=== PATIENT | female | born 1945 | race Caucasian/White ===

== ENCOUNTER → 2017-04-09 09:45 | Outpatient (CLI) | payer OTHER, SELFPAY ==
--- NOTE | 2017-04-09 09:51 | RAD_ITS ---
STUDY: X-RAY - LEFT FOOT CLINICAL: Female, 71 years old. Cellulitis overlying the first toe following injury. TECHNIQUE: 3 view(s) of the foot. COMPARISON: None. FINDINGS: There is a plantar calcaneal spur. Normal visualized subtalar, talonavicular, calcaneocuboid, tarsal and tarsometatarsal articulations. Findings suggestive of an old avulsion fracture along the dorsal posterior aspect of the tarsonavicular bone. Normal metatarsi. There is degenerative arthrosis of the metatarsophalangeal joint of the hallux . Normal tibial and fibular sesamoid bones. Normal interphalangeal joint of the great toe. Normal phalanges of the great toe. Normal second through fifth metatarsophalangeal joints. Normal interphalangeal joints and phalanges of the lesser toes. The soft tissue structures are unremarkable. RAD/Foot min 3 Views IMPRESSION: Soft tissue swelling. No acute abnormality is seen. Electronically Signed: Emory Michelle MD at 14:13 EST Tel [phone], Service support ,
[2017-04-09 12:21] LABS: Absolute Lymphocyte Count 1.79 X10^3/ul (0.83-4.51); Absolute Neutrophil Count 2.3 X10^3/uL (2.0-7.7); Basophil# 0.11 X10^3/uL; Basophil% 2.3 % (0-1); Eosinophil# 0.13 X10^3/uL; Eosinophils% 2.7 % (0-5); Hematocrit 42.4 % (37-47); Hemoglobin 14.5 g/dl (12.0-15.0); Lymphocyte # 1.79 X10^3/ul (4.0); Mean Corp Hgb Conc 34.2 g/gl (32-36); Mean Corpuscular Volume 90.6 fL (81-99); Mean Platelet Vol. 10.8 fl (6.2-12.0); Monocyte# 0.53 X10^3/uL; Neutrophil # 2.26 X10^3/uL (2.7-7.7); Neutrophil % 46.6 % (47-70); Platelet Count 280 K/mm3 (150-450); RBC Distribution Width CV 12.6 % (11.6-14.6); RBC Distribution Width SD 41.4 fl (35.1-43.9); Red Blood Count 4.68 M/mm3 (4.2-5.4); White Blood Count 4.8 K/mm3 (4.4-11.0)
[2017-04-09 12:54] LABS: POSITIVE COUNT NO; POSITIVE DIFFERENTIAL NO; POSITIVE MORPHOLOGY NO
== END ==
PROVIDERS: Family Provider Internal Medicine; PCP Internal Medicine; Visit Provider Nurse Practitioner Family
DX: L03.032 Cellulitis of left toe (principal); S91.112A Laceration without foreign body of left great toe without damage to nail, initial encounter
CPT/HCPCS: 36415; 73630; 85025; 87070; 87075; 87077; 87186; 87205

== ENCOUNTER → 2017-10-12 08:22 | Outpatient (CLI) | payer OTHER, SELFPAY ==
[2017-10-12 10:29] LABS: BUN 17 mg/dL (7-18); BUN/Creat Ratio 18.3 RATIO (10-20); Calcium,Total 9.3 mg/dL (8.5-10.1); Chloride 107 mmol/L (98-107); Creatinine, Serum 0.93 mg/dL (0.55-1.02); EST Glomerular Filtration Rate 63 mL/min (>60); Est Glom Filt Rate - Afr Amer 77 mL/min (>60); Glucose 89 mg/dL (74-106); Potassium 4.1 mmol/L (3.5-5.1); Sodium Level 140 mmol/L (136-145)
[2017-10-12 10:30] LABS: Anion Gap 8 (5-15)
== END ==
PROVIDERS: Family Provider Internal Medicine; PCP Internal Medicine; Visit Provider Internal Medicine
DX: I10 Essential (primary) hypertension (principal)
CPT/HCPCS: 36415; 80048

== ENCOUNTER → 2017-11-12 08:38 | Outpatient (CLI) | payer OTHER, SELFPAY ==
[2017-11-12 11:14] LABS: Vitamin D,25 Hydroxy 28.1 ng/mL (29.95-100.01)
[2017-11-12 11:17] LABS: ALB/GLOB Ratio 1.2 RATIO (0.9-2.4); AST(SGOT) 25 U/L (15-37); Alanine Aminotransfer ALT/SGPT 41 U/L (13-56); Albumin, Serum 3.8 g/dL (3.2-5.0); Alkaline Phosphatase 77 U/L (45-117); Anion Gap 7 (5-15); BUN 13 mg/dL (7-18); BUN/Creat Ratio 14.5 RATIO (10-20); Calcium,Total 8.8 mg/dL (8.5-10.1); Chloride 105 mmol/L (98-107); Cholesterol 223 mg/dL (200); Creatinine, Serum 0.89 mg/dL (0.55-1.02); EST Glomerular Filtration Rate 66 mL/min (>60); Est Glom Filt Rate - Afr Amer 80 mL/min (>60); Globulin 3.2 g/dL (2.2-4.2); Glucose 91 mg/dL (74-106); High Density Lipoprotein 51 mg/dL; Potassium 4.2 mmol/L (3.5-5.1); Sodium Level 141 mmol/L (136-145); Triglycerides 236 mg/dL; Very Low Density Lipoprotein 47 mg/dL (5-40)
== END ==
PROVIDERS: Family Provider Internal Medicine; PCP Internal Medicine; Referring Provider Internal Medicine; Visit Provider Internal Medicine
DX: E78.5 Hyperlipidemia, unspecified (principal); M85.80 Other specified disorders of bone density and structure, unspecified site; R79.89 Other specified abnormal findings of blood chemistry
CPT/HCPCS: 36415; 80053; 80061; 82306

== ENCOUNTER → 2018-01-08 08:11 | Outpatient (CLI) | payer OTHER, SELFPAY ==
--- NOTE | 2018-01-08 08:14 | BI_ITS ---
MAMMOGRAPHY - BILATERAL SCREENING REASON FOR EXAM: Female, 72 years old. Routine annual screening examination. PERTINENT HISTORY: Grandmother with breast cancer. TECHNIQUE: Digital bilateral breast jaya (3D mammographic acquisition) in the CC and MLO projections. 2-D mediolateral oblique (MLO) and craniocaudad (CC) views of both breasts were obtained. CAD: Full Field Digital Mammography with Computer Added Detection was performed. COMPARISON: Comparison is made with prior study dated December 24, 2016 and December 24, 2015. FINDINGS: Breast Composition: There are scattered areas of fibroglandular density. There are no dominant masses or suspicious calcifications. No other significant abnormalities are identified. There has been no significant change since the prior study. BI/SCREENING MAMM (CAD), BILAT IMPRESSION: Stable bilateral screening mammogram. Yearly follow-up mammogram recommended. (A) ASSESSMENT CATEGORY: BIRADS Category 1: Negative. A letter regarding these results will be sent to the patient by the facility within 30 days. Approximately 10% of breast cancers are not detected by mammography. A normal mammogram should not delay biopsy of a clinically suspicious abnormality. [id number] Electronically Signed: Emory Michelle MD at 9:25 EST Tel [phone], Service support ,
--- OUTSIDE RECORDS SUMMARY | 2018-03-04 19:01 | XMS RPT_ITS ---
:1945 Author Organization OHIP Support Name Relationship Address Phone GINA OLMOS Unavailable [address] + [place] [address] GERPO Unavailable [address] [place] [address] + [place] [address] AMARILIS, GINA Unavailable Unavailable + GERPO Unavailable [address] [place] [address] + [place] [address] AMARILIS, GINA Unavailable [address] + [place] [address] GERPO Unavailable [address] [place] [address] + [place] [address] AMARILIS, GINA Unavailable [address] + [place] [address] GERPO Unavailable [address] [place] [address] + [place] [address] AMARILIS, GINA Unavailable [address] + [place] [address] GERPO Unavailable [address] [place] [address] + [place] [address] AMARILIS, GINA Unavailable [address] + [place] [address] GERPO Unavailable [address] [place] [address] + [place] [address] AMARILIS, GINA Unavailable [address] + [place] [address] GERPO Unavailable [address] [place] [address] + [place] [address] AMARILIS, GINA Unavailable [address] + [place] [address] GERPO Unavailable [address] [place] [address] + [place] [address] AMARILISCHEL FRYE Unavailable [address] [phone] [place] [address] GERPO Unavailable [address] [place] [address] + [place] [address] AMARILIS, GINA Unavailable [address] [phone] [place] [address] GERPO Unavailable [address] [place] [address] + [place] [address] AMARILIS, GINA Unavailable [address] [phone] [place] [address] GERPO Unavailable [address] [place] [address] + [place] [address] AMARILIS, GINA Unavailable [address] [phone] [place] [address] GERPO Unavailable [address] [place] [address] + [place] [address] AMARILISCHELE Unavailable [address] [phone] [place] [address] GERPO Unavailable [address] [place] [address] + [place] [address] Care Team Providers Name Role Phone DR. TUYET LOZA DO Attending Unavailable LILLIANA CANDELARIO MD Primary Care Unavailable Sherly Noble Attending Unavailable Oleghe, Efewongbe Referring Unavailable RecioDangelo CUTTER MACHINE-C Attending Unavailable Oleghe, Efewongbe Referring Unavailable Oleghe, Efewongbe Primary Care Unavailable Dangelo Recio CUTTER MACHINE-C Attending Unavailable Oleghe, Efewongbe Primary Care Unavailable Dangelo Recio CUTTER MACHINE-C Referring Unavailable Dangelo Recio CUTTER MACHINE-C Attending Unavailable Oleghe, Efewongbe Referring Unavailable Oleghe, Efewongbe Primary Care Unavailable Oleghe, Efewongbe Attending Unavailable Oleghe, Efewongbe Referring Unavailable Oleghe, Efewongbe Attending Unavailable Oleghe, Efewongbe Referring Unavailable Oleghe, Efewongbe Primary Care Unavailable Oleghe, Efewongbe Attending Unavailable Oleghe, Efewongbe Referring Unavailable Oleghe, Efewongbe Attending Unavailable Oleghe, Efewongbe Referring Unavailable Oleghe, Efewongbe Primary Care Unavailable Oleghe, Efewongbe Attending Unavailable Oleghe, Efewongbe Referring Unavailable Oleghe, Efewongbe Primary Care Unavailable Oleghe, Efewongbe Attending Unavailable Oleghe, Efewongbe Referring Unavailable Oleghe, Efewongbe Primary Care Unavailable Oleghe, Efewongbe Attending Unavailable Oleghe, Efewongbe Referring Unavailable Oleghe, Efewongbe Primary Care Unavailable Oleghe, Efewongbe Attending Unavailable Oleghe, Efewongbe Primary Care Unavailable Oleghe, Efewongbe Referring Unavailable Oleghe, Efewongbe Attending Unavailable Oleghe, Efewongbe Referring Unavailable Oleghe, Efewongbe Primary Care Unavailable PROBLEMS PROBLEMS DATE TYPE CONDITION / CODE ATTENDING STATUS SOURCE 01/25/2018 Unknown Z01.419 - Encounter Sherly Noble Active [facility] for gynecological Community examination Hospital (general) (routine) Repository without abnormal findings / Z01.419(ICD-10) 11/16/2017 Unknown Z12.31 - Encounter Oleghe, Active [facility] for screening [facility] mammogram for Hospital malignant neoplasm Repository of breast / Z12.31(ICD-10) 10/12/2017 Unknown I10 - Essential Oleghe, Active [place] (primary) [facility] hypertension / Hospital I10(ICD-10) Repository 04/09/2017 Unknown S91.112A - Recio, Dangelo Active [facility] Laceration without CUTTER MACHINE-C Community foreign body of Hospital left great toe Repository without damage to nail, initial encounter / S91.112A(ICD-10) 04/09/2017 Unknown L03.032 - Recio, Dangelo Active [facility] Cellulitis of left CUTTER MACHINE-C Community toe / Hospital L03.032(ICD-10) Repository 01/26/2017 Unknown E78.5 - Oleghe, Active [place] Hyperlipidemia, Efewongbe [facility] unspecified / Hospital E78.5(ICD-10) Repository PROCEDURES PROCEDURES No Procedure Records 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 [place] [address] OFFICE VISIT Date of Service: 01/25/18 MR#: [id number] Acct: [id number] Name: RACHELLE OLMOS Rep #: [id number] : 1945 Provider: HARPER Noble Age/Sex: 72/F Location: 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) Chief Complaint: est annual Section Chief Required: No Is patient in pain?: No Allergies amoxicillin Allergy (Intermediate, Verified 01/25/18 08:14) Rash clindamycin Allergy (Intermediate, Verified 01/25/18 08:14) Rash Medications cholecalciferol (vitamin D3) 2,000 unit capsule 2,000 unit PO QDAY 09/10/17 [History Confirmed 01/25/18] lisinopril 10 mg tablet 10 mg PO QDAY #60 tab 12/22/17 [Rx Confirmed 01/25/18] Is last menstrual period known: No Post menopausal: Yes Patient : No : No PFSH Medical History Low back pain (Chronic) Osteopenia (Chronic) IBS (irritable bowel syndrome) (Chronic) Hypertension (Chronic) Hyperlipidemia (Chronic) Surgical History History of 2 sections (Acute) Family History Grandmother Breast cancer Aunt Breast cancer Social History Smoking Status: Never smoker alcohol intake: never substance use type: does not use caffeine: Yes what type of physical activity do you participate in: walking frequency: 1-2 times per week seatbelt use: always do you feel safe at home: Yes additional social history: [employer] Patient works at [employer] Pregancy History 2 Elective abortions Hx Para 2 Spontaneous abortions Past Pregnancies Del. DatName GA/WeeksOutcome [facility]ocaProviderFOB e ht en ia tn Unknown 1971 Sha vanessa Unknown 1974 Lis a HPI Encounter for routine gynecological examination: Details: RACHELLE OLMOS is a 72 year old who presents for annual exam. Denies concerns History of abnormal PAP: no Last mammogram: recent History of abnormal mammogram: negative biopsy Colon cancer screenin Female Reproductive History Questions: Metorrhagia: No, Sexually active: Yes, Dyspareunia: No, PCB: No ROS Const Constitutional: Denies fatigue, weight gain or weight loss Cardio Card: Denies chest pain Resp Resp: Denies cough or shortness of breath with activity GI GI: Denies abdominal pain, constipation, change in stools, vomiting or bloating : Reports as per HPI; denies urinary frequency, pelvic pain, urinary urgency, vaginal discharge, vaginal itching, urinary incontinence or difficulty urinating Exam Const General: cooperative, healthy appearing, no acute distress, well developed Orientation: alert, oriented to person, oriented to place HENMT Head: normal to inspection Neck Neck: normal visual inspection Thyroid: thyroid normal Lymphatic: no lymphadenopathy noted Chest Breast inspection: normal inspection of the breasts, normal inspection of the axillae Breast palpation: normal palpation of the breasts, normal palpation of the axillae, no axillary lymphadenopathy Resp Effort AND Inspection: normal respiratory effort GI Palpation: soft, nontender, no masses Rectal Exam: deferred External Female Exam: normal external appearance, normal appearance of the urethra Urethra: normal appearance of the urethra, normal palpation Speculum Exam - Vagina: normal appearance of the vagina, normal vaginal discharge Speculum Exam - Cervix: normal appearance of the cervix Bimanual Exam- Vagina AND Uterus: normal bimanual exam, uterine size normal, uterine shape normal, uterus non-tender Bimanual Exam- Adnexa, other: normal adnexae, no adnexal masses, adnexae non-tender, pelvic support normal Pelvic Support: normal Neuro General: alert, oriented x3 Psych Affect: normal affect Assessment AND Plan 1. Encounter for gynecological examination without abnormal finding Z01.419 Plan Completed breast and pelvic exam Reviewed diet and exercise Pap NA Mammogram recent Colonoscopy up to date Bone density osteopenia. 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 Plan Detail Other Medications Discontinued: aspirin (Enteric Coated Aspirin) Discontinued Reason: Pt no81 mg PO QDAY 90 tabs 6RF longer taking Coding Level of Care Code Off vis,est,prev 65+yrs Diagnoses Encounter for gynecological examination without abnormal finding Z01.419 Gynecological examination findings: abnormal findings ABSENT 01/25/18 0837 <Electronically signed by Sherly DOWNS> Date Sherly DOWNS Cosigner Signature: Date (if applicable) CC: SCREENING MAMM (CAD), Observed: 01/08/2018 Status: F Source: CECI JOELWINSTON 8:14 AM [facility] REPOSITORY [facility] Imaging Services [address] [place] [id number] SCREENING MAMM (CAD), [facility] MR#: [id number] Acct: [id number] Name: RACHELLE OLMOS Rep #: [id number] : 1945 F 72 From: Emory Michelle MD PCP: Lilliana Candelario MD Status: REG CLI Study: SCREENING MAMM (CAD), JOEL Date of Exam: 01/08/18 Exam# [id number] Ordering Dr: Lilliana Candelario MD MAMMOGRAPHY - BILATERAL SCREENING REASON FOR EXAM: Female, 72 years old. Routine annual screening examination. PERTINENT HISTORY: Grandmother with breast cancer. TECHNIQUE: Digital bilateral breast jaya (3D mammographic acquisition) in the CC and MLO projections. 2-D mediolateral oblique (MLO) and craniocaudad (CC) views of both breasts were obtained. CAD: Full Field Digital Mammography with Computer Added Detection was performed. COMPARISON: Comparison is made with prior study dated December 24, 2016 and December 24, 2015. FINDINGS: Breast Composition: There are scattered areas of fibroglandular density. There are no dominant masses or suspicious calcifications. No other significant abnormalities are identified. There has been no significant change since the prior study. BI/SCREENING MAMM (CAD), BILAT IMPRESSION: Stable bilateral screening mammogram. Yearly follow-up mammogram recommended. (A) ASSESSMENT CATEGORY: BIRADS Category 1: Negative. A letter regarding these results will be sent to the patient by the facility within 30 days. Approximately 10% of breast cancers are not detected by mammography. A normal mammogram should not delay biopsy of a clinically suspicious abnormality. [id number] Electronically Signed: Emory Michelle MD at 9:25 EST Tel [phone], Service support , CC: Lilliana Candelario MD Product Picker: Signed INTERNAL MEDICINE Observed: 11/16/2017 Status: F Source: [place] OFFICE VISIT 2:31 PM [facility] [place] [address] [place] [address] OFFICE VISIT Date of Service: 11/16/17 MR#: [id number] Acct: [id number] Name: RACHELLE OLMOS Rep #: [id number] : 1945 Provider: Lilliana Candelario MD Age/Sex: 72/F Location: [facility] Status: Signed Intake Vital Signs11/16/17 Height 5 ft 1 in 11/16/17 Weight: 164 lb 11/16/17 Body Mass Index (BMI) 30.9 11/16/17 Blood Pressure 151/69 H 11/16/17 Blood Pressure Location Lt brachial Intake Visit Reasons: 3 M FU Chief Complaint: 3 mo FU - BP Is patient in pain?: No Allergies amoxicillin Allergy (Intermediate, Verified 11/16/17 08:03) Rash clindamycin Allergy (Intermediate, Verified 11/16/17 08:03) Rash Medications aspirin 81 mg tablet,delayed release 81 mg PO QDAY #90 tab 01/26/17 [Rx Confirmed 11/16/17] calcium carbonate 600 mg calcium (1,500 mg) tablet 600 mg PO BID tab 01/26/17 [History Confirmed 11/16/17] cholecalciferol (vitamin D3) 2,000 unit capsule 2,000 unit PO QDAY 09/10/17 [History Confirmed 11/16/17] lisinopril 10 mg tablet 10 mg PO QDAY #60 tab 09/10/17 [Rx Confirmed 11/16/17] PFSH Medical History Low back pain (Chronic) Osteopenia (Chronic) IBS (irritable bowel syndrome) (Chronic) Hypertension (Chronic) Hyperlipidemia (Chronic) Surgical History History of 2 sections (Acute) Family History Grandmother Breast cancer Aunt Breast cancer Social History Smoking Status: Never smoker alcohol intake: never substance use type: does not use what type of physical activity do you participate in: walking frequency: 1-2 times per week HPI HPI Chief Complaint: 3 mo FU - BP Details: RACHELLE OLMOS, is a 72yo F who presents to the office today for follow-up. She has no acute complaints at this time. Blood pressure in office is 151/60 9 mmHg however in review of a log as she had said previously, blood pressure at home is much better controlled. Possible whitecoat syndrome. Currently on 10 mg of lisinopril. Amlodipine was discontinued due to intolerable lower extremity edema. Last colonoscopy was about 3 years ago, next year in 7 years. Had previously received Zostavax, open to receiving the new shingles vaccine. Does not routinely receive a flu vaccine. Mammogram due in December. ROS Const Constitutional: No chills, fatigue, fever(s), frequent falls, malaise, weakness, sleep problems or change in appetite Eyes Eyes: No blurry vision, change in vision, double vision, discharge or visual disturbances ENT ENT: No abnormal hearing, ear pain, ear pressure, tinnitus or dizziness/vertigo Resp Respiratory: No cough, shortness of breath or wheezing Cardio Cardiology: No chest pain at rest, chest pain with exertion, shortness of breath, dyspnea on exertion, generalized swelling, irregular heart rhythm, lightheadedness, orthopnea, fast heart rate or palpitations Gastro GI: No abdominal pain, change in bowel habits, constipation, diarrhea, nausea/dyspepsia or vomiting Genitourinary-Female: No difficulty urinating, burning urination, painful urination, urinary incontinence, urinary frequency, urinary urgency, urinary hesitancy, urinary retention, Frequent nighttime urination/ nocturia, sexual problems, genital lesions, abnormal vaginal bleeding, pelvic pain, vaginal dryness, vaginal odor or Vaginal Itching Musc Musculoskeletal: No joint pain, back pain, joint swelling, limited range of motion, numbness or tingling Skin Skin: No change in skin color, itching, rash or wounds Breast Breast: No breast lump or breast pain Neuro Neurology: No frequent falls, weakness, abnormal hearing, numbness, tingling, unsteady gait/balance, dizziness, loss of vision, memory loss or visual disturbances Psych Psychiatric: No memory loss, No anxiety, No change in appetite, No depression, No Thoughts of harming yourself/Others Endo Endocrine: No fatigue, heat intolerance, increased thirst/drinking, increased hunger or increased urination Aller/Imm Allergy/Immunologic: No wheezing, itchy eyes or seasonal allergy symptoms Burke/Lymp Hematologic/Lymphatic: No easy bleeding, easy bruising or enlarged lymph nodes Exam Const General: cooperative, no acute distress Orientation: alert, awake, oriented x3 HENVA Head: atraumatic, normocephalic Ears: hearing grossly normal bilaterally Resp Effort AND Inspection: normal respiratory effort, able to speak in complete sentences Auscultation: Bilateral: Clear to Auscultation Cardio Rate: regular rate Rhythm: regular rhythm Heart Sounds: S1 normal, S2 normal GI Palpation: soft, no hepatosplenomegaly Neuro General: alert, awake, oriented x3, moves all extremities, CN's II-XI intact bilaterally Extrem General: no clubbing, cyanosis or edema Psych Appearance: grossly normal Mood: congruent mood Affect: normal affect Assessment AND Plan 1. Essential hypertension I10 Plan Stable. Continue current medication. Continue lifestyle/dietary modifications. 2. Pure hypercholesterolemia E78.00 Plan Triglycerides slightly increased. Lifestyle/dietary modifications discussed including incorporating healthy fats into her diet, exercise and weight loss. Repeat in 1 year. 3. Osteopenia M85.80 Plan Stable. Last bone density scan was done about a year ago. Currently on vitamin D and calcium supplements. Muscle strengthening exercises also recommended. Continue current management. 4. Encounter for preventive care Z00.00 Plan Mammogram ordered. Due in December. Colonoscopy due in 7 years. Had received the Zostavax previously, advised to receive the new shingles vaccine. Does not routinely receive a flu shot, this was strongly recommended. Patient states that she will consider. This note was generated with MYFXation software. It may contain incorrect words, spelling, and punctuation that were not noted in checking the note before signing. Plan Detail Other Orders Orders: Coding Level of Care Code Off vis,est,level 3 Diagnoses Essential hypertension I10 Hypertension type: essential hypertension Pure hypercholesterolemia E78.00 Hyperlipidemia type: pure hypercholesterolemia Osteopenia M85.80 Encounter for preventive care Z00.00 11/16/17 1431 <Electronically signed by Lilliana Candelario MD> Date Lilliana Candelario MD Cosigner Signature: Date (if applicable) CC: VITAMIN D,25 HYDROXY Collected: 11/12/2017 Status: F Source: [facility] 8:48 AM [facility] REPOSITORY TYPE CODE TESTS RESULT OUT OF REFERENCE UNITS RANGE LAB L506.1000 29.95-100.01 ng/mL Low Vitamin D 28.1 25-OH Result Comment: Vitamin D 25(OH) Status Range Deficiency <20 ng/mL (50nmol/L) Insuffciency 20 - 30 ng/mL (50 - 75 nmol/L) Sufficiency 30 - 100 ng/mL (75 - 250 nmol/L) Toxicity >100 ng/mL (>250 nmol/L) Performed By: #### L506.1000 #### [facility] [address] [place], [address] COMPREHENSIVE METABOLIC Collected: 11/12/2017 Status: F Source: CECI SHEPHERD 8:48 AM [facility] REPOSITORY Order Comment: Comments: Fasting Comments: Fasting Comments: Fasting TYPE CODE TESTS RESULT OUT OF RANGE REFERENCE UNITS LAB L501.0100 74-106 mg/dL Normal GLU 91 Result Comment: Please note revised GLUCOSE reference range effective 2017. LAB L501.1000 7-18 mg/dL Normal BUN 13 LAB L501.1100 0.55-1.02 mg/dL Normal CREAT,SERUM 0.89 Result Comment: The validity of the calculated GFR AND GFRAA in patients over 70 years has not been determined. Clinical correlation is essential. LAB L501.1110 >60 mL/min Normal EST GFR 66 Result Comment: Non- GFR Calc LAB L501.1115 >60 mL/min Normal EST GFR - AA 80 Result Comment: GFR Calc LAB L501.1300 10-20 RATIO Normal BUN/CRE 14.5 LAB L501.1500 6.4-8.2 g/dL T Normal PROT 7.0 LAB L501.1800 3.2-5.0 g/dL Normal ALB 3.8 LAB L501.1950 2.2-4.2 g/dL Normal GLOB 3.2 LAB L501.2000 0.9-2.4 RATIO Normal A/G 1.2 LAB L501.2200 8.5-10.1 mg/dL CA Normal 8.8 LAB L501.4100 15-37 U/L Normal AST 25 LAB L501.4305 45-117 U/L Normal ALK P 77 LAB L501.4405 13-56 U/L Normal ALT 41 LAB L501.4600 0.20-1.00 mg/dL T Normal BILI 0.60 LAB L501.5300 136-145 mmol/L NA Normal 141 LAB L501.5600 3.5-5.1 mmol/L K Normal 4.2 LAB L501.5900 98-107 mmol/L CL Normal 105 LAB L501.6100 21.0-32.0 mmol/L Normal CO2 29.0 LAB L501.6200 5-15 Normal GAP 7 Performed By: #### L500.4050, L500.4100 #### [facility] [address] [place], [address] LIPID PROFILE Collected: 11/12/2017 Status: F Source: CECI 8:48 AM [facility] REPOSITORY Order Comment: Comments: Fasting Comments: Fasting Comments: Fasting TYPE CODE TESTS RESULT OUT OF RANGE REFERENCE UNITS LAB L501.4900 200 mg/dL High CHOL 223 Result Comment: <200 mg/dL Desirable 200-240 mg/dL Borderline >240 mg/dL High Risk LAB L501.5000 mg/dL High TRIG 236 Result Comment: The drugs N-Acetylcysteine and Metamizole may falsely depress this assay. Serum Triglycerides Reference Interval Normal <150 mg/dL Borderline high 150 - 199 mg/dL High 200 - 499 mg/dL Very High > or = 500 mg/dL LAB L501.6400 mg/dL Normal HDL 51 Result Comment: The drugs N-Acetylcysteine and Metamizole may falsely depress this assay. Reference Range HDL <40 mg/dL Low HDL Cholesterol HDL >or= 60 mg/dL High HDL Cholesterol LAB L501.6500 0-130 mg/dL Normal LDL 125 LAB L501.6600 5-40 mg/dL High VLDL 47 Performed By: #### L500.4050, L500.4100 #### [facility] [address] [place], [address] INTERNAL MEDICINE Observed: 10/19/2017 Status: F Source: CECI OFFICE VISIT 3:56 PM [facility] REPOSITORY [facility] [address] [place] [address] OFFICE VISIT Date of Service: 10/15/17 MR#: [id number] Acct: [id number] Name: RACHELLE OLMOS Rep #: [id number] : 1945 Provider: Lilliana Candelario MD Age/Sex: 72/F Location: [facility] Status: Signed Intake Vital Signs10/15/17 Height 5 ft 1 in 10/15/17 Weight: 164 lb 10/15/17 Body Mass Index (BMI) 30.9 10/15/17 Blood Pressure 161/71 Intake Visit Reasons: 1 mo f/u Chief Complaint: 1 mo FU Is patient in pain?: No Allergies amoxicillin Allergy (Intermediate, Verified 10/15/17 08:42) Rash clindamycin Allergy (Intermediate, Verified 10/15/17 08:42) Rash Medications aspirin 81 mg tablet,delayed release 81 mg PO QDAY #90 tab 01/26/17 [Rx Confirmed 10/15/17] calcium carbonate 600 mg calcium (1,500 mg) tablet 600 mg PO BID tab 01/26/17 [History Confirmed 10/15/17] cholecalciferol (vitamin D3) 2,000 unit capsule 2,000 unit PO QDAY 09/10/17 [History Confirmed 10/15/17] lisinopril 10 mg tablet 10 mg PO QDAY #60 tab 09/10/17 [Rx Confirmed 10/15/17] PFSH Medical History Low back pain (Chronic) Osteopenia (Chronic) IBS (irritable bowel syndrome) (Chronic) Hypertension (Chronic) Hyperlipidemia (Chronic) Surgical History History of 2 sections (Acute) Family History Grandmother Breast cancer Aunt Breast cancer Social History Smoking Status: Never smoker alcohol intake: never substance use type: does not use what type of physical activity do you participate in: walking frequency: 1-2 times per week HPI HPI Chief Complaint: 1 mo FU Details: RACHELLE OLMOS, is a 72yo F who presents to the office today for follow up lower extremity and blood pressure following medication adjustment. She however, does not bring in her log. She feels well otherwise. ROS Const Constitutional: No chills, fatigue, fever(s), frequent falls, malaise, weakness, sleep problems or change in appetite Eyes Eyes: No blurry vision, change in vision, double vision, discharge or visual disturbances ENT ENT: No abnormal hearing, ear pain, ear pressure, tinnitus or dizziness/vertigo Resp Respiratory: No cough, shortness of breath or wheezing Cardio Cardiology: No chest pain at rest, chest pain with exertion, shortness of breath, dyspnea on exertion, generalized swelling, irregular heart rhythm, lightheadedness, orthopnea, fast heart rate or palpitations Gastro GI: No abdominal pain, change in bowel habits, constipation, diarrhea, nausea/dyspepsia or vomiting Genitourinary-Female: No difficulty urinating, burning urination, painful urination, urinary incontinence, urinary frequency, urinary urgency, urinary hesitancy, urinary retention, Frequent nighttime urination/ nocturia, sexual problems, genital lesions, abnormal vaginal bleeding, pelvic pain, vaginal dryness, vaginal odor or Vaginal Itching Musc Musculoskeletal: No joint pain, back pain, joint swelling, limited range of motion, numbness or tingling Skin Skin: No change in skin color, itching, rash or wounds Breast Breast: No breast lump or breast pain Neuro Neurology: No frequent falls, weakness, abnormal hearing, numbness, tingling, unsteady gait/balance, dizziness, loss of vision, memory loss or visual disturbances Psych Psychiatric: No memory loss, No anxiety, No change in appetite, No depression, No Thoughts of harming yourself/Others Endo Endocrine: No fatigue, heat intolerance, increased thirst/drinking, increased hunger or increased urination Aller/Imm Allergy/Immunologic: No wheezing, itchy eyes or seasonal allergy symptoms Burke/Lymp Hematologic/Lymphatic: No easy bleeding, easy bruising or enlarged lymph nodes Exam Const General: cooperative, no acute distress Orientation: alert, awake, oriented x3 HENMT Head: atraumatic, normocephalic Ears: hearing grossly normal bilaterally Resp Effort AND Inspection: normal respiratory effort, able to speak in complete sentences Auscultation: Bilateral: Clear to Auscultation Cardio Rate: regular rate Rhythm: regular rhythm Heart Sounds: S1 normal, S2 normal GI Palpation: soft, no hepatosplenomegaly Neuro General: alert, awake, oriented x3, moves all extremities, CN's II-XI intact bilaterally Extrem General: pedal edema bilaterally (Trace.) Location: of the leg Psych Appearance: grossly normal Mood: congruent mood Affect: normal affect Assessment AND Plan 1. Lower extremity edema R60.0 Plan Medication induced. Resolved for the most part. Trace edema left. Continue conservative measures. 2. Essential hypertension I10 Plan Not optimally controlled. Patient however states better blood pressure control at home but is not here with her log. Twice daily blood pressure log and drop off here in 2 weeks. medication adjustment if still elevated. Continue life style and dietary modifications. 3. Pure hypercholesterolemia E78.00 Plan Life style controlled. Repeat Lipid profile ordered. 4. Healthcare maintenance Z00.00 Plan Mammogram due in december. Last Colonoscopy was 3 years ago. next due in 7 years. This note was generated with [employer] dictation software. It may contain incorrect words, spelling, and punctuation that were not noted in checking the note before signing. Plan Detail Follow Up 3 Months Coding Level of Care Code Off vis,est,level 3 Diagnoses Lower extremity edema R60.0 Essential hypertension I10 Hypertension type: essential hypertension Pure hypercholesterolemia E78.00 Hyperlipidemia type: pure hypercholesterolemia Healthcare maintenance Z00.00 10/19/17 1556 <Electronically signed by Lilliana Candelario MD> Date Lilliana Candelario MD Cosigner Signature: Date (if applicable) CC: BASIC METABOLIC Collected: 10/12/2017 Status: F Source: [place] PROFILE (BMP) 8:28 AM [facility] REPOSITORY TYPE CODE TESTS RESULT OUT OF RANGE REFERENCE UNITS LAB L501.0100 74-106 mg/dL Normal GLU 89 Result Comment: Please note revised GLUCOSE reference range effective 2017. LAB L501.1000 7-18 mg/dL Normal BUN 17 LAB L501.1100 0.55-1.02 mg/dL Normal CREAT,SERUM 0.93 Result Comment: The validity of the calculated GFR AND GFRAA in patients over 70 years has not been determined. Clinical correlation is essential. LAB L501.1110 >60 mL/min Normal EST GFR 63 Result Comment: Non- GFR Calc LAB L501.1115 >60 mL/min Normal EST GFR - AA 77 Result Comment: GFR Calc LAB L501.1300 10-20 RATIO Normal BUN/CRE 18.3 LAB L501.2200 8.5-10.1 mg/dL CA Normal 9.3 LAB L501.5300 136-145 mmol/L NA Normal 140 LAB L501.5600 3.5-5.1 mmol/L K Normal 4.1 LAB L501.5900 98-107 mmol/L CL Normal 107 LAB L501.6100 21.0-32.0 mmol/L Normal CO2 25.0 LAB L501.6200 5-15 Normal GAP 8 Performed By: #### L500.2500 #### [facility] [address] [place], [address] INTERNAL MEDICINE Observed: 09/13/2017 Status: F Source: [place] OFFICE VISIT 4:33 PM [facility] REPOSITORY [facility] [address] [place] [address] [place] [address] OFFICE VISIT Date of Service: 09/10/17 MR#: [id number] Acct: [id number] Name: RACHELLE OLMOS Rep #: [id number] : 1945 Provider: Lilliana Candelario MD Age/Sex: 72/F Location: [facility] [place].[facility] Status: Signed Intake Vital Signs09/10/17 Height 5 ft 1 in Intake Visit Reasons: SWELLING LOWER EXT Chief Complaint: swellling in feet Is patient in pain?: No Allergies amoxicillin Allergy (Intermediate, Verified 08/17/17 08:18) Rash clindamycin Allergy (Intermediate, Verified 08/17/17 08:18) Rash Medications aspirin 81 mg tablet,delayed release 81 mg PO QDAY #90 tab 01/26/17 [Rx Confirmed 01/26/17] calcium carbonate 600 mg calcium (1,500 mg) tablet 600 mg PO BID tab 01/26/17 [History Confirmed 01/26/17] cholecalciferol (vitamin D3) 2,000 unit capsule 2,000 unit PO QDAY 09/10/17 [History Confirmed 09/10/17] lisinopril 10 mg tablet 10 mg PO QDAY #60 tab 09/10/17 [Rx Confirmed 09/10/17] PFSH Medical History Low back pain (Chronic) Osteopenia (Chronic) IBS (irritable bowel syndrome) (Chronic) Hypertension (Chronic) Hyperlipidemia (Chronic) Surgical History History of 2 sections (Acute) Family History Grandmother Breast cancer Aunt Breast cancer Social History Smoking Status: Never smoker alcohol intake: never substance use type: does not use what type of physical activity do you participate in: walking frequency: 1-2 times per week HPI HPI Chief Complaint: swellling in feet Details: RACHELLE OLMOS, is a 72 F who presents to the office today with concerns of bilateral lower extremity swelling. Swelling is said to have started after being on amlodipine. Has still persisted despite reducing the dose. Said to have worsened over recent vacation. ROS Const Constitutional: No weight change, body ache, chills, fatigue, sleep problems, fever(s), change in appetite, snoring, weakness, frequent falls, headache(s) or excessive sweating Eyes Eyes: No change in vision, eye pain, light sensitivity or blurry vision ENT ENT: No headache(s), abnormal hearing, ear pain, tinnitus, nasal congestion, sore throat or neck pain Resp Respiratory: No snoring, cough, shortness of breath or wheezing Cardio Cardiology: Positive for generalized swelling (in lower legs); no excessive sweating, chest pain at rest, chest pain with exertion, shortness of breath, dyspnea on exertion, palpitations, orthopnea or lightheadedness Gastro GI: No abdominal pain, change in bowel habits, constipation, diarrhea, vomiting, nausea/dyspepsia or cramping Genitourinary-Female: No burning urination, painful urination, urinary incontinence, urinary frequency, abnormal vaginal bleeding, pelvic pain or other Musc Musculoskeletal: No neck pain, abnormal walking, joint pain, back pain, limited range of motion, numbness or tingling Skin Skin: No redness, dry skin, itching, lesions, wounds or rash Neuro Neurology: No weakness, frequent falls, headache(s), abnormal hearing, abnormal walking, numbness, tingling, abnormal speech, dizziness or memory loss Psych Psychiatric: No change in appetite, No memory loss, No anxiety, No depression, No Thoughts of harming yourself/Others Endo Endocrine: No fatigue, excessive sweating, cold intolerance, increased thirst/drinking, heat intolerance, flushing or increased hunger Aller/Imm Allergy/Immunologic: No wheezing, itchy eyes, hives or seasonal allergy symptoms Burke/Lymp Hematologic/Lymphatic: No easy bleeding, easy bruising or enlarged lymph nodes Exam Const General: cooperative, no acute distress Orientation: alert, awake, oriented x3 HENMT Head: atraumatic, normocephalic Ears: hearing grossly normal bilaterally Resp Effort AND Inspection: normal respiratory effort, able to speak in complete sentences Auscultation: Bilateral: Clear to Auscultation Cardio Rate: regular rate Rhythm: regular rhythm Heart Sounds: S1 normal, S2 normal GI Palpation: soft, no hepatosplenomegaly Neuro General: alert, awake, oriented x3, moves all extremities, CN's II-XI intact bilaterally Extrem General: pedal edema bilaterally Psych Appearance: grossly normal Mood: congruent mood Affect: normal affect Assessment AND Plan 1. Lower extremity edema R60.0 Plan Possibly combination of venous insufficiency and amlodipine side effect. DC amlodipine. Elevate lower extremities when seated. Reduced salt intake also recommended. 2. Essential hypertension I10 Plan Not optimally controlled. Patient however states that at home her blood pressure is on average in the 120s. Advised to keep a blood pressure log. Will switch to lisinopril 10 mg daily. Follow-up in 1 month. This note was generated with [employer] software. It may contain incorrect words, spelling, and punctuation that were not noted in checking the note before signing. Orders Orders: Plan Detail Other Medications New: Discontinued: Coding Level of Care Code Off vis,est,level 4 Diagnoses Lower extremity edema R60.0 Essential hypertension I10 Hypertension type: essential hypertension 09/13/17 1633 <Electronically signed by Lilliana Candelario MD> Date Lilliana Candelario MD Cosigner Signature: Date (if applicable) CC: INTERNAL MEDICINE Observed: 08/23/2017 Status: F Source: [place] OFFICE VISIT 1:06 PM [facility] [place] [address] OFFICE VISIT Date of Service: 08/17/17 MR#: [id number] Acct: [id number] Name: RACHELLE OLMOS Da Rep #: [id number] : 1945 Provider: Lilliana Candelario MD Age/Sex: 72/F Location: [facility] [place].[facility] Status: Signed Intake Vital Signs08/17/17 Height 5 ft 11 in 08/17/17 Weight: 165 lb 08/17/17 Body Mass Index (BMI) 23.0 08/17/17 Blood Pressure 163/76 Intake Visit Reasons: 3 MO F/U Chief Complaint: 3 mo F/U BP Is patient in pain?: No Allergies amoxicillin Allergy (Intermediate, Verified 08/17/17 08:18) Rash clindamycin Allergy (Intermediate, Verified 08/17/17 08:18) Rash Medications aspirin 81 mg tablet,delayed release 81 mg PO QDAY #90 tab 01/26/17 [Rx Confirmed 01/26/17] calcium carbonate 600 mg calcium (1,500 mg) tablet 600 mg PO BID tab 01/26/17 [History Confirmed 01/26/17] amlodipine 5 mg tablet 5 mg PO QDAY #90 tab 08/10/17 [Rx] PFSH Medical History Low back pain (Chronic) Osteopenia (Chronic) IBS (irritable bowel syndrome) (Chronic) Hypertension (Chronic) Hyperlipidemia (Chronic) Surgical History History of 2 sections (Acute) Family History Grandmother Breast cancer Aunt Breast cancer Social History Smoking Status: Never smoker alcohol intake: never substance use type: does not use what type of physical activity do you participate in: walking frequency: 1-2 times per week HPI HPI Chief Complaint: 3 mo F/U BP Details: RACHELLE OLMOS, is a 72yo F who presents to the office today for follow up on management of her chronic medical conditions. She has no complaints at this time. She however has not been taking her Crestor. ROS Const Constitutional: No chills, fatigue, fever(s), frequent falls, malaise, weakness, sleep problems or change in appetite Eyes Eyes: No blurry vision, change in vision, double vision, discharge or visual disturbances ENT ENT: No abnormal hearing, ear pain, ear pressure, tinnitus or dizziness/vertigo Resp Respiratory: No cough, shortness of breath or wheezing Cardio Cardiology: No chest pain at rest, chest pain with exertion, shortness of breath, dyspnea on exertion, generalized swelling, irregular heart rhythm, lightheadedness, orthopnea, fast heart rate or palpitations Gastro GI: No abdominal pain, change in bowel habits, constipation, diarrhea, nausea/dyspepsia or vomiting Genitourinary-Female: No difficulty urinating, burning urination, painful urination, urinary incontinence, urinary frequency, urinary urgency, urinary hesitancy, urinary retention, Frequent nighttime urination/ nocturia, sexual problems, genital lesions, abnormal vaginal bleeding, pelvic pain, vaginal dryness, vaginal odor or Vaginal Itching Musc Musculoskeletal: No joint pain, back pain, joint swelling, limited range of motion, muscle weakness, numbness or tingling Skin Skin: No change in skin color, itching, rash or wounds Breast Breast: No breast lump or breast pain Neuro Neurology: No frequent falls, weakness, abnormal hearing, numbness, tingling, unsteady gait/balance, dizziness, loss of vision, memory loss or visual disturbances Psych Psychiatric: No memory loss, No anxiety, No change in appetite, No depression, No Thoughts of harming yourself/Others Endo Endocrine: No fatigue, heat intolerance, increased thirst/drinking, increased hunger or increased urination Aller/Imm Allergy/Immunologic: No wheezing, itchy eyes or seasonal allergy symptoms Burke/Lymp Hematologic/Lymphatic: No easy bleeding, easy bruising or enlarged lymph nodes Exam Const General: cooperative, no acute distress Orientation: alert, awake, oriented x3 [facility] Head: atraumatic, normocephalic Ears: hearing grossly normal bilaterally Resp Effort AND Inspection: normal respiratory effort, able to speak in complete sentences Auscultation: Bilateral: Clear to Auscultation Cardio Rate: regular rate Rhythm: regular rhythm Heart Sounds: S1 normal, S2 normal GI Palpation: soft, no hepatosplenomegaly Musc Musculoskeletal: No muscle weakness Neuro General: alert, awake, oriented x3, moves all extremities, CN's II-XI intact bilaterally Extrem General: no clubbing, cyanosis or edema Psych Appearance: grossly normal Mood: congruent mood Affect: normal affect Assessment AND Plan 1. Essential hypertension I10 Plan Mildly elevated in office however, patient reports an average blood pressure reading at home in the 120's. Cut down to 5 mg of amlodipine due to LE swelling. Continue current management and life style modification. Patient to bring in her home Bp machine at next visit. 2. Pure hypercholesterolemia E78.00 Plan Currently not taking crestor anymore. Self discontinued. Lab ordered. Continue life style modifications. 3. Osteopenia M85.80 Plan Stable. Continue calcium and Vit. D Orders Orders: Plan Detail Other Orders Orders: Follow Up 3 Months Coding Level of Care Code Off vis,est,level 3 Diagnoses Essential hypertension I10 Hypertension type: essential hypertension Pure hypercholesterolemia E78.00 Hyperlipidemia type: pure hypercholesterolemia Osteopenia M85.80 08/23/17 1306 <Electronically signed by Lilliana Candelario MD> Date Lilliana Candelario MD Cosigner Signature: Date (if applicable) CC: INTERNAL MEDICINE Observed: 04/15/2017 Status: F Source: [place] OFFICE VISIT 11:04 AM [facility] [address] [address] OFFICE VISIT Date of Service: 04/15/17 MR#: [id number] Acct: [id number] Name: RACHELLE OLMOS Rep #: [id number] : 1945 Provider: Dangelo Recio NP Age/Sex: 71/F Location: [facility] Status: Signed Intake Vital Signs04/15/17 Blood Pressure 160/71 04/15/17 Blood Pressure Location Rt brachial Intake Visit Reasons: 1 WK FU Chief Complaint: cellulitis follow up Is patient in pain?: No Allergies amoxicillin Allergy (Intermediate, Verified 01/26/17 08:42) Rash clindamycin Allergy (Intermediate, Verified 01/26/17 08:44) Rash Medications aspirin 81 mg tablet,delayed release 81 mg PO QDAY #90 tab 01/26/17 [Rx Confirmed 01/26/17] calcium carbonate 600 mg calcium (1,500 mg) tablet 600 mg PO BID tab 01/26/17 [History Confirmed 01/26/17] cyclobenzaprine 5 mg tablet 5 mg PO QDAY 01/26/17 [History Confirmed 01/26/17] amlodipine 5 mg tablet 5 mg PO QDAY 02/03/17 [History] hydrochlorothiazide 25 mg tablet 25 mg PO QDAY #90 tab 02/03/17 [Rx] sulfamethoxazole 800 mg-trimethoprim 160 mg tablet 1 tab PO BID 7 Days #14 tab 04/09/17 [Rx Confirmed 04/09/17] PFSH Medical History Low back pain (Chronic) Osteopenia (Chronic) IBS (irritable bowel syndrome) (Chronic) Hypertension (Chronic) Hyperlipidemia (Chronic) Surgical History History of 2 sections (Acute) Family History Grandmother Breast cancer Aunt Breast cancer Social History Smoking Status: Never smoker alcohol intake: never substance use type: does not use what type of physical activity do you participate in: walking frequency: 1-2 times per week HPI HPI Chief Complaint: cellulitis follow up Details: RACHELLE OLMOS, is a 71 F who presents to the office today for a one-week check of left great toe cellulitis. The patient has a past medical history as listed above. She notes that she finished her prescribed Bactrim DS as prescribed at the last visit. Patient denies fevers, redness, warmth, drainage, and any systemic symptoms of infection. She states that the pain is almost entirely resolved. As was the case on the last visit, patient's blood pressure was significantly elevated at 160/71 and pulse was 108. However, patient states that she does get anxious when she is in the office and review of her home log reveals well-controlled blood pressure and pulse. She denies any acute complaints today. The patient otherwise denies any chills, nausea, vomiting, shortness of breath, chest pain or pressure, palpitations, orthopnea, lower extremity edema, syncope or presyncopal episodes. ROS Const Constitutional: No weight change, body ache, chills, fatigue, sleep problems, fever(s), change in appetite, snoring, weakness, frequent falls, headache(s) or excessive sweating Eyes Eyes: No change in vision, eye pain, light sensitivity or blurry vision ENT ENT: No headache(s), abnormal hearing, ear pain, tinnitus, nasal congestion, sore throat or neck pain Resp Respiratory: No snoring, cough, shortness of breath or wheezing Cardio Cardiology: No excessive sweating, chest pain at rest, chest pain with exertion, shortness of breath, dyspnea on exertion, palpitations, orthopnea or lightheadedness Gastro GI: No abdominal pain, change in bowel habits, constipation, diarrhea, vomiting, nausea/dyspepsia or cramping Musc Musculoskeletal: No neck pain, abnormal walking, joint pain, back pain, limited range of motion, numbness or tingling Skin Skin: Positive for wounds (Left great toe laceration, well-healing); no redness, dry skin, itching, lesions or rash Neuro Neurology: No weakness, frequent falls, headache(s), abnormal hearing, abnormal walking, numbness, tingling, abnormal speech, dizziness or memory loss Psych Psychiatric: No change in appetite, No memory loss, No anxiety, No depression, No Thoughts of harming yourself/Others Endo Endocrine: No fatigue, excessive sweating, cold intolerance, increased thirst/drinking, heat intolerance, flushing or increased hunger Aller/Imm Allergy/Immunologic: No wheezing, itchy eyes, hives or seasonal allergy symptoms Burke/Lymp Hematologic/Lymphatic: No easy bleeding, easy bruising or enlarged lymph nodes Exam Const General: cooperative, comfortable, no acute distress Nutritional Appearance: average body habitus, well nourished Orientation: alert, oriented x3 Limitations: mental status not altered Resp Effort AND Inspection: normal respiratory effort, able to speak in complete sentences, normal respiratory pattern, symmetric chest movement, no audible wheezes, no cough Auscultation: Bilateral: Clear to Auscultation Cardio Palpation: normal PMI Rate: regular rate Heart Sounds: S1 normal, S2 normal, normal S1 and S2, no click, no gallops, no murmurs, no rubs Skin Trauma: laceration Other: Site of laceration on left great toe medial aspect is well approximated, without purulent drainage, redness, warmth, fluctuation. Moderate amount of edema persists to entire toe, tenderness to palpation on plantar aspect of toe. Slight Delayed cap refill, but with appropriate pedal and posttibial pulses. Neuro General: alert, awake, oriented x3, CN's II-XI intact bilaterally Speech: speech normal Gait: normal gait Motor: muscle tone normal throughout Extrem General: normal to inspection, normal gait, no edema, no pedal edema Psych Appearance: grossly normal Mental Status: mental status grossly normal Affect: normal affect Attitude: cooperative Thought Process: normal Assessment AND Plan 1. Cellulitis of great toe, left L03.032 Plan Cellulitis of left great toe surrounding laceration and has resolved. Previous wound culture reviewed with patient. Some minor edema remains and there is tenderness on the plantar aspect of the toe, but there is no redness drainage warmth. The area of laceration is well approximated, and surrounding skin is moist. Advised patient to keep area covered when wearing a shoe or ambulating, but to leave open when possible. She is also advised to cut down on the amount of antibiotic ointment she is using, but also not to let area get to dry. She is encouraged to keep the extremity elevated when possible to help alleviate ongoing edema. Reviewed culture findings of rare staph epidermidis with patient, informed is not a significant finding. X-ray of the foot that was done at last visit did reveal an old avulsion fracture of the midfoot. Discussed this with patient and she is unaware of ever having such fracture or traumatic injury to the left foot. Discussed any red flag symptoms of worsening cellulitis and when to seek medical attention. Patient verbalized understanding. 2. Essential hypertension I10 Plan Blood pressure and pulse elevated upon arrival in the office again today. Patient has kept a log over the last week of blood pressures and pulses, this is reviewed and notes that both are well controlled. She states that she just is anxious while in the office. She notes that she has been attempting to limit sodium intake. Continue on blood pressure meds as prescribed. 3. Osteopenia M85.80 Plan During discussion of patient's x-ray findings as noted above we addressed the patient's bone density scan done in December 2016 did reveal some osteopenia of which the patient is aware. She is currently taking a calcium and vitamin D supplement, she is encouraged to continue. We will plan to repeat a bone density scan one year from the previous. If abnormal or worsen, may consider starting patient on biphosphonate therapy. Plan Detail Follow Up 3 months or sooner if needed Coding Level of Care Code Off vis,est,level 3 Diagnoses Cellulitis of great toe, left L03.032 Essential hypertension I10 Hypertension type: essential hypertension Osteopenia M85.80 04/15/17 1104 <Electronically signed by Dangelo DOWNS> Date Dangelo DOWNS Cosigner Signature: Date (if applicable) CC: Observed: 04/09/2017 Status: F Source: [place] CULTURE, DEEP WOUND 11:09 AM [facility] [place] REPOSITORY Gram Stain Gram Stain No White Blood Cells No organisms seen Wound Culture ORGANISM 1: Staphylococcus epidermidis Amount Growth 1+ Staphylococcus epidermidis: REACTION Benzylpenicillin NF >=0.5 R Cefoxitin *NF - Clindamycin $$ <=0.25 S Inducable Clindamycin [place] - Erythromycin $ >=8 R Gentamicin $ <=0.5 S Levofloxacin $ <=0.12 S Linezolid $$$$ 1 S Oxacillin NF <=0.25 S Tigecycline $$$$ <=0.12 S Rifampin $$ <=0.5 S Tetracycline NF 2 S Vancomycin $ 1 S (NF) indicates non-formulary drug at [facility]. Approval by Infectious Disease Specialist required before non-formulary drugs may be ordered and/or dispensed. * CLSI guidelines does not recommend testing of cephalosporins. This interpretation is deduced from Beta-lactam/penicillin results. Cult, Anaerobic No anaerobic bacteria isolated. Performed By: #### M100.1500 #### [facility] [place], [address] INTERNAL MEDICINE Observed: 04/09/2017 Status: F Source: [place] OFFICE VISIT 10:51 AM [facility] REPOSITORY [facility] [address] [facility] [address] [place], [place] [address] OFFICE VISIT Date of Service: 04/09/17 MR#: [id number] Acct: [id number] Name: RACHELLE OLMOS Rep #: [id number] : 1945 Provider: Dangelo Recio NP Age/Sex: 71/F Location: [facility] [place].[facility] Status: Signed Intake Vital Signs04/09/17 Blood Pressure 142/78 04/09/17 Pulse Rate 105 Intake Visit Reasons: remove stitches from big toe Chief Complaint: suture removal Is patient in pain?: No Allergies amoxicillin Allergy (Intermediate, Verified 01/26/17 08:42) Rash clindamycin Allergy (Intermediate, Verified 01/26/17 08:44) Rash Medications aspirin 81 mg tablet,delayed release 81 mg PO QDAY #90 tab 01/26/17 [Rx Confirmed 01/26/17] calcium carbonate 600 mg calcium (1,500 mg) tablet 600 mg PO BID tab 01/26/17 [History Confirmed 01/26/17] cyclobenzaprine 5 mg tablet 5 mg PO QDAY 01/26/17 [History Confirmed 01/26/17] amlodipine 5 mg tablet 5 mg PO QDAY 02/03/17 [History] hydrochlorothiazide 25 mg tablet 25 mg PO QDAY #90 tab 02/03/17 [Rx] sulfamethoxazole 800 mg-trimethoprim 160 mg tablet 1 tab PO BID 7 Days #14 tab 04/09/17 [Rx Confirmed 04/09/17] PFSH Medical History Low back pain (Chronic) Osteopenia (Chronic) IBS (irritable bowel syndrome) (Chronic) Hypertension (Chronic) Hyperlipidemia (Chronic) Surgical History History of 2 sections (Acute) Family History Grandmother Breast cancer Aunt Breast cancer Social History Smoking Status: Never smoker alcohol intake: never substance use type: does not use what type of physical activity do you participate in: walking frequency: 1-2 times per week HPI HPI Chief Complaint: suture removal Details: RACHELLE OLMOS, is a 71 F who presents to the office today for a suture removal. She has a past medical history as listed above. The patient states that she presented to [place] emergency department approximately 8 days ago after she somewhat tripped going down steps and stubbed her left great toe which caused an open laceration. She went to the emergency department and received a tetanus vaccination and 3 sutures placed. The patient states that since then, she has been doing well. She denies any increase in pain or purulent discharge. She does state that she has been soaking the extremity in Epsom salts and covering it with antibiotic ointment. She does state that the toe is a little bit reddened. She denies any systemic symptoms of infection at this time. Her blood pressure and pulse was significantly elevated at the initial start of her visit, however after rest they have a went down into stable ranges. The patient does note that she cut back on her amlodipine to 5 mg daily due to her ankle swelling. The patient otherwise denies any fever, chills, nausea, vomiting, shortness of breath, chest pain or pressure, palpitations, orthopnea, lower extremity edema, syncope or presyncopal episodes. ROS Const Constitutional: No body ache, chills, headache(s), weakness or fever(s) Eyes Eyes: No blurry vision, change in vision, eye pain or discharge ENT ENT: No headache(s), abnormal hearing, ear pain, ear pressure, tinnitus, dizziness/vertigo or balance problems Resp Respiratory: No cough, shortness of breath or wheezing Cardio Cardiology: No chest pain at rest, shortness of breath, dyspnea on exertion or palpitations Gastro GI: No abdominal pain or bloating Neuro Neurology: No headache(s), weakness or abnormal hearing Aller/Imm Allergy/Immunologic: No wheezing Exam Const General: cooperative, comfortable, no acute distress, well developed Orientation: alert, awake, oriented x3 HENMT Head: atraumatic, normocephalic Ears: hearing grossly normal bilaterally Eyes General: appearance normal, both eyes and all related structures Resp Effort AND Inspection: normal respiratory effort, able to speak in complete sentences Auscultation: Bilateral: Clear to Auscultation Cardio Rate: regular rate Rhythm: regular rhythm (slightly tachy) Heart Sounds: S1 normal, S2 normal, murmur systolic II/ and at the right sternal border GI Palpation: soft, no hepatosplenomegaly Skin Other: 3 sutures removed from left great toe on the medial aspect, site is well approximated, no purulent discharge present, however the toe is slightly erythematous and warm, nontender to touch. Wound cultures collected and area of erythema marked with black magic marker. Bilateral dorsal pedis pulses intact 2+ Extrem General: normal to inspection, no clubbing, cyanosis or edema Assessment AND Plan 1. Cellulitis of great toe of left foot L03.032 Plan The patient does have a small area of cellulitis surrounding the left great toe laceration status post traumatic injury. Sutures were removed today 3 and patient tolerated well. Site is well approximated and no purulent discharge, however given the area of cellulitis, wound, cultures collected and blood work ordered. Per patient an x-ray was not done at the time, therefore a x-ray was ordered now as well. Patient will be treated with Bactrim DS given her multiple antibiotic allergies and will follow up in our office in 1 week or sooner if needed. Discussed warning signs of worsening cellulitis and instructed to seek medical attention if this occurs. Patient verbalized understanding. Discussed with patient not to soak in Epsom salts and to use a thin layer of antibiotic ointment and covered with gauze. Elevate extremity. Continue with CAM boot Orders Orders: 2. Laceration of left great toe S91.112A Plan Plan as above. Did request ER records for continuity of care. Orders Orders: 3. Essential hypertension I10 Plan Blood pressure and pulse was somewhat elevated today, instructed patient to keep a log of these for the next week and to bring with them with her appointment, may consider increasing her blood pressure medications or adding an additional 1 if continues with elevation. Discuss lowering sodium in the diet. Heena disclaimer Plan Detail Other Medications New: Coding Level of Care Code Off vis,est,level 3 Diagnoses Cellulitis of great toe of left foot L03.032 Laceration of left great toe S91.112A Essential hypertension I10 Hypertension type: essential hypertension 04/09/17 1051 <Electronically signed by Dangelo DOWNS> Date Dangelo DOWNS Cosigner Signature: Date (if applicable) CC: CBC W/DIFF, AUTOMATED Collected: 04/09/2017 Status: F Source: CECI 9:57 AM [facility] REPOSITORY TYPE CODE TESTS RESULT OUT OF RANGE REFERENCE UNITS LAB L100.1000 4.4-11.0 K/mm3 Normal WBC 4.8 LAB L100.1200 4.2-5.4 M/mm3 Normal RBC 4.68 LAB L100.1300 12.0-15.0 g/dl Normal HGB 14.5 LAB L100.1400 37-47 % Normal HCT 42.4 LAB L100.1500 81-99 fL Normal MCV 90.6 LAB L100.1600 27.0-32.0 pg Normal MCH 31.0 LAB L100.1700 32-36 g/gl Normal MCHC 34.2 LAB L100.1810 11.6-14.6 % Normal RDW CV 12.6 LAB L100.1820 35.1-43.9 fl Normal RDW SD 41.4 LAB L100.1900 150-450 K/mm3 Normal PLT 280 LAB L100.2000 6.2-12.0 fl Normal MPV 10.8 LAB L100.2100 47-70 % Low NEUT% 46.6 LAB L100.2200 19-41 % Normal LY% 37.0 LAB L100.2300 0-10 % High MONO% 11.0 LAB L100.2400 0-5 % Normal EO% 2.7 LAB L100.2500 0-1 % High BASO% 2.3 LAB L100.2550 0.0-0.9 % Normal IM GRAN % 0.400 Result Comment: IG% - Immature Granulocytes (promyelocytes, myelocytes and metamyelocytes) > 1% indicates that a LEFT SHIFT is Present. LAB L100.2620 2.0-7.7 X10 3/uL Normal Absolute Neut 2.3 LAB L100.2720 0.83-4.51 X10 3/ul Normal Absolute Lymph 1.79 Performed By: #### L100.0100 #### [facility] [address] [place], [address] FOOT MIN 3 VIEWS Observed: 04/09/2017 Status: F Source: CECI 9:51 AM [facility] REPOSITORY [facility] [address] [place] [address] Foot min 3 Views MR#: [id number] Acct: [id number] Name: RACHELLE OLMOS Rep #: [id number] : 1945 F 71 From: Emroy Michelle MD PCP: Lilliana Candelario MD Status: REG CLI Study: Foot min 3 Views Date of Exam: 04/09/17 Exam# [id number] Ordering Dr: Dangelo Recio CUTTER MACHINE-C STUDY: X-RAY - LEFT FOOT CLINICAL: Female, 71 years old. Cellulitis overlying the first toe following injury. TECHNIQUE: 3 view(s) of the foot. COMPARISON: None. FINDINGS: There is a plantar calcaneal spur. Normal visualized subtalar, talonavicular, calcaneocuboid, tarsal and tarsometatarsal articulations. Findings suggestive of an old avulsion fracture along the dorsal posterior aspect of the tarsonavicular bone. Normal metatarsi. There is degenerative arthrosis of the metatarsophalangeal joint of the hallux . Normal tibial and fibular sesamoid bones. Normal interphalangeal joint of the great toe. Normal phalanges of the great toe. Normal second through fifth metatarsophalangeal joints. Normal interphalangeal joints and phalanges of the lesser toes. The soft tissue structures are unremarkable. RAD/Foot min 3 Views IMPRESSION: Soft tissue swelling. No acute abnormality is seen. Electronically Signed: Emory Michelle MD at 14:13 EST Tel [phone], Service support , CC: Lilliana Candelario MD; Dangelo Recio NP Product Picker: Signed INTERNAL MEDICINE Observed: 01/29/2017 Status: F Source: [facility] OFFICE VISIT 1:03 PM [facility] [address] [place] [address] OFFICE VISIT Date of Service: 01/26/17 MR#: [id number] Acct: [id number] Name: RACHELLE OLMOS Rep #: [id number] : 1945 Provider: Lilliana Candelario MD Age/Sex: 71/F Location: [facility] Status: Signed Intake Vital Signs01/26/17 Height 5 ft 1 in 01/26/17 Weight: 157 lb 01/26/17 Body Mass Index (BMI) 29.6 01/26/17 Blood Pressure 150/70 01/26/17 Blood Pressure Location Rt brachial Intake Visit Reasons: 1 M FU Chief Complaint: BP check Is patient in pain?: No Allergies amoxicillin Allergy (Intermediate, Verified 01/26/17 08:42) Rash clindamycin Allergy (Intermediate, Verified 01/26/17 08:44) Rash Medications amlodipine 10 mg tablet 10 mg PO QDAY #90 tab 01/26/17 [Rx Confirmed 01/26/17] aspirin 81 mg tablet,delayed release 81 mg PO QDAY #90 tab 01/26/17 [Rx Confirmed 01/26/17] calcium carbonate 600 mg calcium (1,500 mg) tablet 600 mg PO BID tab 01/26/17 [History Confirmed 01/26/17] cholecalciferol (vitamin D3) 50,000 unit capsule 50,000 unit PO QWEEK 01/26/17 [History Confirmed 01/26/17] cyclobenzaprine 5 mg tablet 5 mg PO QDAY 01/26/17 [History Confirmed 01/26/17] rosuvastatin 10 mg tablet 10 mg PO QDAY #90 tab 01/26/17 [Rx Confirmed 01/26/17] PFSH Medical History Low back pain (Chronic) Osteopenia (Chronic) IBS (irritable bowel syndrome) (Chronic) Hypertension (Chronic) Hyperlipidemia (Chronic) Surgical History History of 2 sections (Acute) Family History Grandmother Breast cancer Aunt Breast cancer Social History Smoking Status: Never smoker alcohol intake: never substance use type: does not use what type of physical activity do you participate in: walking frequency: 1-2 times per week HPI 1 M FU: Chief Complaint: BP check Details: RACHELLE OLMOS, is a 71yo F who presents to the office today for follow up of her chronic medical conditions. She has no acute complaints at this time. She was started on Amlodipine at her last visit due to persistently elevated blood pressure despite life style modification.Bp in office today is 150/70mmHg. She states that it typically runs between 130 - 140mmHg at home. She is also currently on Vitamin D2 for correction of low Vitamin D. Her BMD was suggestive of Osteopenia with a low Frax score. She denies chest pain, shortness of breath, bone pain,, nausea or vomiting. ROS Const Constitutional: No weight change, body ache, chills, fatigue, sleep problems, fever(s), change in appetite, snoring, weakness, frequent falls, headache(s) or excessive sweating Eyes Eyes: No change in vision, eye pain, light sensitivity or blurry vision ENT ENT: No headache(s), abnormal hearing, ear pain, tinnitus, nasal congestion, sore throat or neck pain Resp Respiratory: No snoring, cough, shortness of breath or wheezing Cardio Cardiology: No excessive sweating, chest pain at rest, chest pain with exertion, shortness of breath, dyspnea on exertion, palpitations, orthopnea or lightheadedness Gastro GI: No abdominal pain, change in bowel habits, constipation, diarrhea, vomiting, nausea/dyspepsia or cramping Musc Musculoskeletal: No neck pain, abnormal walking, joint pain, back pain, limited range of motion, numbness or tingling Skin Skin: No redness, dry skin, itching, lesions, wounds or rash Neuro Neurology: No weakness, frequent falls, headache(s), abnormal hearing, abnormal walking, numbness, tingling, abnormal speech, dizziness or memory loss Psych Psychiatric: No change in appetite, No memory loss, No anxiety, No depression, No Thoughts of harming yourself/Others Endo Endocrine: No fatigue, excessive sweating, cold intolerance, increased thirst/drinking, heat intolerance, flushing or increased hunger Aller/Imm Allergy/Immunologic: No wheezing, itchy eyes, hives or seasonal allergy symptoms Burke/Lymp Hematologic/Lymphatic: No easy bleeding, easy bruising or enlarged lymph nodes Exam Const General: cooperative, comfortable, no acute distress, well developed Orientation: alert, awake, oriented x3 HENMT Head: atraumatic, normocephalic Ears: hearing grossly normal bilaterally Eyes General: appearance normal, both eyes and all related structures Resp Effort AND Inspection: normal respiratory effort, able to speak in complete sentences Auscultation: Bilateral: Clear to Auscultation Cardio Rate: regular rate Rhythm: regular rhythm Heart Sounds: S1 normal, S2 normal, murmur systolic II/ and at the right sternal border GI Palpation: soft, no hepatosplenomegaly Extrem General: normal to inspection, no clubbing, cyanosis or edema Assessment AND Plan 1. Essential hypertension I10; I10; I10 Plan Better however, not optimally controlled. Increase Amlodipine to 10mg daily. Continue Life style and dietary modification. Follow up in 3 months. 2. Pure hypercholesterolemia E78.00; E78.00; E78.00; E78.0 Plan Last Lipid profile with an LDL of 143 and HDL of 69. She has a long history of hyperlipidemia but has not been on medication recently. Will restart on Crestor 10mg daily. EC asirin 81mg daily. Continue dietary and life style modification. Follow up in 3 months. CMP and Lipid profile in 3 months. 3. Osteopenia M85.80 Plan Frax score with a 2.7% risk of major osteoporotic fracture and a 0.1 risk of Hip fracture. Continue Vitamin D2 to complete 8 weeks then switch to a daily maintenance dose of 2000 units daily. Calcium, 600mg BID High impact weight bearing exercises. Plan Detail Other Orders Orders: Other Medications New: Discontinued: Follow Up 3 Months Coding Level of Care Code Off vis,est,level 3 Diagnoses Essential hypertension I10; I10; I10 Hypertension type: essential hypertension Pure hypercholesterolemia E78.00; E78.00; E78.00; E78.0 Hyperlipidemia type: pure hypercholesterolemia Osteopenia M85.80 01/29/17 1303 <Electronically signed by Lilliana Candelario MD> Date Lilliana Candelario MD Cosigner Signature: Date (if applicable) CC: ALLERGIES ALLERGIES DATE TYPE / CODE NAME / CODE REACTION SEVERITY SOURCE 01/25/2018 Drug clindamycin/ Rash MO [facility] Allergy/4160 [id number]([facility] [address](SNOMED XNORM) Repository CT) 01/25/2018 Drug amoxicillin/ Rash MO [facility] Allergy/4160 [id number]([place] 5136302(SNOMED XNORM) Repository CT) ENCOUNTERS ENCOUNTERS ADMIT/DISCHARGE ACCOUNT NUMBER ADMITTING ENCOUNTER LOCATION SOURCE CLASS 01/25/2018/01/26/20 [id number] Ambulatory BMSBuilding: [place] [address] Repository 01/08/2018 [id number] Ambulatory [facility] ding:OPBI Repository 11/16/2017/11/17/19 [id number] Ambulatory BMSBuilding: [place] 18 BMS.[facility] Repository 11/12/2017 [id number] Ambulatory [facility] ding:MTLAB Repository 10/15/2017/10/16/19 [id number] Ambulatory BMSBuilding: [place] 18 BMS.[facility] Repository 10/12/2017 [id number] Ambulatory [facility] ding:MTLAB Repository 09/10/2017/09/11/19 [id number] Ambulatory BMSBuilding: [place] 18 BMS.[facility] Repository 08/17/2017/08/18/19 [id number] Ambulatory BMSBuilding: [place] 18 BMS.[facility] Repository 04/27/2017 [id number] Ambulatory BMSBuilding: [place] BMS.[facility] Repository 04/15/2017/04/16/19 [id number] Ambulatory BMSBuilding: [place] 18 BMS.[facility] Repository 04/09/2017 [id number] Ambulatory [facility] ding:MTLAB Repository 04/09/2017/04/10/19 [id number] Ambulatory BMSBuilding: [place] 18 BMS.[facility] Repository 04/01/2017/04/01/19 [id number] Emergency BBuilding:GENE Lee [address] [place] [address] Repository 01/26/2017/01/27/20 [id number] Ambulatory BMSBuilding: [place] 17 [facility]MS[facility] Hospital Repository PAYERS PAYERS ENCOUNTER GUARANTOR PAYER SUBSCRIBER SOURCE 01/25/2018 RACHELLE Roberson Primary RACHELLE Ornelas [id number] Insurance:MEDICAL GERBERDOB[facility] [id number] Number: Repository [id number]: 330 [id number] [phone] () Date:8610-61-11EK[address] [address]AN: 01/25/2018 Secondary NOT GIVENUNK [place] Insurance:SELF PAY [facility] Number: Effective Repository Date:2018-01-25 01/08/2018 RACHELLE Roberson Primary RACHELLE Ornelas [id number] Insurance:MEDICAL GERBERDOB: [facility] [id number] Number: Repository [address]Pqb: 330 [id number] [phone] () Date:7744-39-40KJ[address] [address]BG: 01/08/2018 Secondary NOT GIVENUNK [place] Insurance:SELF PAY [facility] Number: Effective Repository Date:2017-11-17 11/16/2017 RACHELLE L GERBERP Primary RACHELLE L [place] O [address], Insurance:MEDICAL GERBERDOB: [facility] [address]Ihg: [facility] [id number] Hospital Number: Repository () [id number] Date:7701-72-48WC[address] [address]AG: 11/16/2017 Secondary NOT GIVENUNK [place] Insurance:SELF PAY [facility] Number: Effective Repository Date:2017-11-16 11/12/2017 RACHELLE L GERBERP Primary RACHELLE L [place] O [address], Insurance:MEDICAL GERBERDOB: [facility] [address]Tpg: [facility] [id number] Hospital Number: Repository () [id number] Date:4263-72-98NE [address] [address]OD: 11/12/2017 Secondary NOT GIVENUNK [place] Insurance:SELF PAY [facility] Number: Effective Repository Date:2017-11-12 10/15/2017 RACHELLE L GERBERP Primary RACHELLE L [place] [address], Insurance:MEDICAL GERBERDOB: [place] [address]Wiu: [facility] [id number] Hospital Number: Repository () [id number] Date:6261-60-98ZC [address] [address]ZY: 10/15/2017 Secondary NOT GIVENUNK [place] Insurance:SELF PAY [facility] Number: Effective Repository Date:2017-10-12 10/12/2017 RACHELLE L GERBERP Primary RACHELLE L [place] [address], Insurance:MEDICAL GERBERDOB: [facility] [address]Wjp: [facility] [id number] Hospital Number: Repository () [id number] Date:9916-71-18RF [address] [address]CN: 10/12/2017 Secondary NOT GIVENUNK [place] Insurance:SELF PAY [facility] Number: Effective Repository Date:2017-10-12 09/10/2017 RACHELLE L GERBERP Primary RACHELLE L [place] [address], Insurance:MEDICAL GERBERDOB: [facility] [address]Vfa: [facility] [id number] Hospital Number: Repository () [id number] Date:9030-26-87YH [address] [address]GM: 09/10/2017 Secondary NOT GIVENUNK [place] Insurance:SELF PAY [facility] Number: Effective Repository Date:2017-09-10 2017 RACHELLE L GERBERP Primary RACHELLE L [place] [address], Insurance:MEDICAL GERBERDOB: [facility] [address]Gqn: [address]07[address]09[facility] Number: Repository () [id number] Date:2572-18-91XP [address] [address]XR: 2017 Secondary NOT GIVENUNK [place] Insurance:SELF PAY [facility] Number: Effective Repository Date:2017 04/27/2017 RACHELLE L GERBERP Primary RACHELLE L [place] [address], Insurance:MEDICAL GERBERDOB: [facility] [address]Cha: [address] Number: Repository () [id number] Date:0102-19-73IE [address] [address]QY: 04/27/2017 Secondary NOT GIVENUNK [place] Insurance:SELF PAY [facility] Number: Effective Repository Date:2017-01-26 04/15/2017 RACHELLE L GERBERP Primary RACHELLE L [place] [address], Insurance:MEDICAL GERBERDOB: [facility] [address]Apn: [address] Number: Repository () [id number] Date:5887-72-58NR [address] [address]FG: 04/15/2017 Secondary NOT GIVENUNK [place] Insurance:SELF PAY [facility] Number: Effective Repository Date:2017-04-09 04/09/2017 RACHELLE L GERBERP Primary RACHELLE L [place] [address], Insurance:MEDICAL GERBERDOB: [facility] [address]Wss: [address] Number: Repository () [id number] Date:1354-29-58XN[address] [place] [address]JT: 04/09/2017 Secondary NOT GIVENUNK [place] Insurance:SELF PAY [facility] Number: Effective Repository Date:2017-04-09 04/09/2017 RACHELLE L GERBERP Primary RACHELLE L [place] [address] Insurance:MEDICAL GERBERDOB: [facility] [address]Ron: [facility] [id number] Hospital Number: Repository () [id number] Date:5329-15-97EE[address] [address]LE: 04/09/2017 Secondary NOT GIVENUNK [place] Insurance:SELF PAY [facility] Number: Effective Repository Date:2017-04-05 04/01/2017 RACHELLE L Primary RACHELLE L [facility] GERBERDOB: Insurance:[facility] GERBERDOB: [facility] INSURANCE [id number] Repository INDER [facility] Number: [address] [place] [place] [id number], [place] [address]Tcq: 330) Date:2017-03-1103337Mwt: () [id number] [phone] Name:Greyson75 Rajesh LÓPEZEBENEZER ()Tel: (236) [place], [place] [phone] () [address]WP: 04/01/2017 Secondary R[facility]HELLE [facility] Insurance:MEDICAL GERBERDOB: [facility] [id number] Repository Number: 0 IN[address] [id number] [place] Date:2017-04-01 [address]Jza: [phone] [phone] Name:ROBERT SCOTT ()Tel: [phone], [place] [phone] () [address]EN: 01/26/2017 RACHELLE L GERBERP Primary RACHELLE L [place] [address], Insurance:MEDICAL GERBERDOB: [facility] [address]Jmv: [facility] [id number] Hospital Number: Repository () [id number] Date:1786-49-62[address], [place] [address]BC: 01/26/2017 Secondary NOT GIVENORESTES [place] Insurance:SELF PAY [facility] Number: Effective Repository Date:2017-01-09
== END ==
PROVIDERS: Family Provider Internal Medicine; PCP Internal Medicine; Referring Provider Internal Medicine; Visit Provider Internal Medicine
DX: Z12.31 Encounter for screening mammogram for malignant neoplasm of breast (principal)
CPT/HCPCS: 77063; 77067

== ENCOUNTER → 2018-08-09 | Outpatient (CLI) | payer OTHER, SELFPAY ==
[2018-08-09 08:54] VITALS: BMI 29.9
[2018-08-09 11:16] LABS: Anion Gap 5 (5-15); BUN 14 mg/dL (7-18); BUN/Creat Ratio 13.7 RATIO (10-20); Calcium,Total 9.5 mg/dL (8.5-10.1); Chloride 105 mmol/L (98-107); Creatinine, Serum 1.02 mg/dL (0.55-1.02); EST Glomerular Filtration Rate 57 mL/min (>60); Est Glom Filt Rate - Afr Amer 69 mL/min (>60); Glucose 92 mg/dL (74-106); Potassium 4.1 mmol/L (3.5-5.1); Sodium Level 139 mmol/L (136-145)
== END | disposition home or self-care (01) ==
LOC: BIMLAB 09:42
PROVIDERS: Family Provider Internal Medicine; PCP Internal Medicine; Visit Provider Internal Medicine
DX: I10 Essential (primary) hypertension (principal)
CPT/HCPCS: 36415; 80048

== ENCOUNTER → 2018-08-12 | Outpatient (CLI) | payer OTHER, SELFPAY ==
[2018-08-12 14:20] VITALS: BMI 29.9
[2018-08-12 16:56] LABS: Bacteria 0 SEEN /hpf (None Seen); Mucous, Urine 0 SEEN /hpf (<or=2+); Red Blood Cells-Urine 0 SEEN /hpf (0-5); Squamous Epithelial Cells - UA 0 SEEN /hpf (5-10); White Blood Cells 0 SEEN /hpf (0-5)
[2018-08-12 17:13] LABS: Color, Urine Yellow (Yellow); Glucose, Dipstick Normal (Normal); Ketone-Dipstick Negative (Negative); Leukocyte Esterase-Dipstick 100 /ul (Negative); Nitrite-Dipstick Negative (Negative); Occult Blood-Urine Negative /ul (Negative); Protein-Dipstick Negative (Negative); Specific Gravity, Urine 1.005 (1.002-1.030); Urine Bilirubin Dipstick Negative (Negative); Urine Clarity Clear (Clear); Urine Urobilinogen Normal (Normal); Urine pH 6.5 (5.0 - 8.0)
== END | disposition home or self-care (01) ==
LOC: LABSPEC 16:06
PROVIDERS: Family Provider Internal Medicine; PCP Internal Medicine; Referring Provider Internal Medicine; Visit Provider Internal Medicine
DX: N39.0 Urinary tract infection, site not specified (principal)
CPT/HCPCS: 81001; 87086; 87088

== ENCOUNTER → 2018-11-08 | Outpatient (CLI) | payer OTHER, SELFPAY ==
[2018-11-08 08:43] VITALS: BMI 30.3
--- NOTE | 2018-11-08 09:49 | RAD_ITS ---
STUDY: X-RAY - PELVIS AND BILATERAL HIPS REASON FOR EXAM: Female, 73 years old. Pain TECHNIQUE: AP view of the pelvis.? 2 views of the right hip, and 2 views of the left hip were obtained. COMPARISON: None. FINDINGS: There is a non-specific bowel gas pattern. Normal visualized soft tissue structures. Normal bilateral iliac wings, sacroiliac joints and visualized sacrum. Normal bilateral superior and inferior pubic rami. Normal pubic symphysis. Normal bilateral ischial tuberosities. Normal visualized right femoral head. Normal right acetabulum. Normal right hip joint. Normal visualized left femoral head. Normal left acetabulum. Normal left hip joint. Degenerative lumbar changes. RAD/Hips B/L min 2 views w/ Pelvis IMPRESSION: Normal x-ray examination of the pelvis and bilateral hips. Electronically Signed: J Luis Leos MD at 21:36 EDT Tel , Service support ,
--- NOTE | 2018-11-08 09:49 | RAD_ITS ---
STUDY: X-RAY - LUMBAR SPINE REASON FOR EXAM: Female, 73 years old. Pain TECHNIQUE: 3 view(s) of the lumbar spine were obtained. COMPARISON: None FINDINGS: Normal alignment. No compression deformity. Degenerative disc disease at L3-4, L4-5, and L5-S1. Diffuse facet disease. Soft tissues are intact. RAD/Lumbar Spine 2 or 3 Views IMPRESSION: Multilevel degenerative disease as described. Electronically Signed: J Luis Leos MD at 21:42 EDT Tel , Service support ,
--- NOTE | 2018-11-08 10:12 | EKG12_ITS ---
Test Reason : HYPERTENSION Blood Pressure : / mmHG Vent. Rate : 087 BPM Atrial Rate : 087 BPM P-R Int : 156 ms QRS Dur : 082 ms QT Int : 350 ms P-R-T Axes : 070 042 059 degrees QTc Int : 421 ms Normal sinus rhythm with sinus arrhythmia Possible Left atrial enlargement Borderline ECG Confirmed by PETERSON HUGHES, JUAN MIGUEL ([id number]), clinical editor MAGGIE TAVERA ([id number]) on 11/09/2018 12:03:54 PM Referred By: ROSS Confirmed By:JUAN MIGUEL WINKLER MD
[2018-11-08 13:05] LABS: Cholesterol 239 mg/dL (200); High Density Lipoprotein 58 mg/dL; T4 Free Direct 1.06 ng/dL (0.76-1.46); Triglycerides 199 mg/dL; Very Low Density Lipoprotein 40 mg/dL (5-40)
== END | disposition home or self-care (01) ==
LOC: BIMLAB 09:16
PROVIDERS: Family Provider Internal Medicine; PCP Internal Medicine; Visit Provider Internal Medicine
DX: E78.5 Hyperlipidemia, unspecified (principal); I10 Essential (primary) hypertension; R00.0 Tachycardia, unspecified; M25.559 Pain in unspecified hip; M54.10 Radiculopathy, site unspecified
CPT/HCPCS: 36415; 72100; 73521; 80061; 84439; 84443; 93005

== ENCOUNTER → 2019-02-07 08:26 | Outpatient (CLI) | payer OTHER, SELFPAY ==
[2018-11-08 09:24] VITALS: BMI 30.3
[2019-01-27 10:44] VITALS: BMI 30.3
--- NOTE | 2019-02-07 08:27 | BI_ITS ---
MAMMOGRAPHY - BILATERAL SCREENING 3-D TOMOSYNTHESIS REASON FOR EXAM: Female, 73 years old. BILAT SCREENING - FAM HX OF CONSUELO GRANDMOTHER @ ? AGE, MAT GREAT AUNT @ ? AGE - BILAT ASPIRATIONS YRS AGO - LT EXC BX 30+ YRS AGO PERTINENT HISTORY: No significant family history. TECHNIQUE: 2-D mammograms and 3-D Tomosynthesis of the breast (s) were performed. CAD was performed. COMPARISON: January 08, 2018. FINDINGS: The breast composition is composed of scattered fibroglandular density. Scattered benign calcifications are seen. No dense spiculated masses or suspicious microcalcifications are identified. No architectural distortion is identified. There is no skin thickening or retraction. There has been no significant change since the prior study. BI/SCREEN MAMM (CAD) W/JORDAN BILAT IMPRESSION: No mammographic signs of malignancy. Routine yearly mammograms recommended. ASSESSMENT CATEGORY: BIRADS Category 1: Negative. A letter regarding these results will be sent to the patient by the facility within 30 days. FOLLOW UP RECOMMENDATION: Yearly follow up mammogram recommended. (A) Approximately 10% of breast cancers are not detected by mammography. A normal mammogram should not delay biopsy of a clinically suspicious abnormality. Electronically Signed: Leonardo Ocampo MD at 13:53 EST , Service support ,
--- NOTE | 2019-02-07 08:59 | BD_ITS ---
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 COMPARISON: Comparison is made with prior examination dated December 24, 2016. FINDINGS: Lumbar Spine (L1-L4): g/cm2 (1.030) / T-score (-1.1) / Z-score (0.6) Findings are suggestive of osteopenia with a low fracture risk. Left Femur Total: g/cm2 (0.861) / T-score (-1.2) / Z-score (0.4) Left Femoral Neck: g/cm2 (0.915) / T-score (-0.9) / Z-score (0.9) Right Femur Total: g/cm2 (0.814) / T-score (-1.5) / Z-score (0.0) Right Femoral Neck: g/cm2 (0.876) / T-score (-1.2) / Z-score (0.6) The T-Scores on the most recent prior examination were: Lumbar Spine (L1-L4): There has been worsening of bone density since the previous examination. Left Femur Total: which represents a worsening of 2%. Right Femur Total: which represents a worsening of 1.2%. BD/Dexa Bone Density Study IMPRESSION: The patient is considered osteopenic as outlined below according to World Tahir Organization (WHO) criteria with a moderate fracture risk. There has been worsening of bone density since the previous examination. Reference Information: The T-score is the number of standard deviations above or below the standard which is normal for young adults at their peak bone mineral density. The World Health Organization (WHO) interprets the T-scores as follows: Above -1 Normal bone density Between -1 and -2.5 Osteopenia Equal to / or below -2.5 Osteoporosis As a practical clinical guideline, osteopenia may be graded as follows: Mild -1 through -1.5 Moderate -1.6 through -2.0 Severe -2.1 through -2.4 The Z-score is the number of standard deviations above or below age-matched controls. A Z-score of less than -1.5 would be considered abnormal. References: 1. NIH Osteoporosis and Related Bone Diseases http://www.osteo.org 2. International Society for Clinical Densitometry http://www.iscd.org 3. National Osteoporosis Foundation http://www.nof.org Electronically Signed: Emory Michelle, at 11:01 EST , Service support ,
== END ==
PROVIDERS: Family Provider Internal Medicine; PCP Internal Medicine; Referring Provider Nurse Practitioner Women's Health; Visit Provider Nurse Practitioner Women's Health
DX: Z12.31 Encounter for screening mammogram for malignant neoplasm of breast (principal); M85.80 Other specified disorders of bone density and structure, unspecified site
CPT/HCPCS: 77063; 77067; 77080

== ENCOUNTER → 2019-03-07 | Outpatient (CLI) | payer OTHER, SELFPAY ==
[2019-03-07 08:44] VITALS: BMI 30.3
[2019-03-07 12:20] LABS: Anion Gap 4 (5-15); BUN 13 mg/dL (7-18); BUN/Creat Ratio 12.5 RATIO (10-20); Calcium,Total 9.8 mg/dL (8.5-10.1); Chloride 107 mmol/L (98-107); Creatinine, Serum 1.04 mg/dL (0.55-1.02); EST Glomerular Filtration Rate 55 mL/min (>60); Est Glom Filt Rate - Afr Amer 67 mL/min (>60); Glucose 82 mg/dL (74-106); Potassium 4.6 mmol/L (3.5-5.1); Sodium Level 141 mmol/L (136-145)
== END | disposition home or self-care (01) ==
LOC: BIMLAB 09:32
PROVIDERS: PCP Internal Medicine; Referring Provider Nurse Practitioner Family; Visit Provider Nurse Practitioner Family
DX: I10 Essential (primary) hypertension (principal)
CPT/HCPCS: 36415; 80048

== ENCOUNTER → 2019-09-05 | Outpatient (CLI) | payer OTHER, SELFPAY ==
[2019-09-05 08:25] VITALS: BMI 30.3
[2019-09-05 12:15] LABS: Absolute Lymphocyte Count 1.72 X10^3/uL (0.83-4.51); Absolute Neutrophil Count 2.6 X10^3/uL (2.0-7.7); Basophil# 0.07 X10^3/uL; Basophil% 1.4 % (0-1); Hematocrit 43.6 % (37-47); Hemoglobin 14.1 g/dL (12.0-15.0); Lymphocyte # 1.72 X10^3/ul (4.0); Lymphocyte % 33.9 % (19-41); Mean Corp Hgb Conc 32.3 g/dL (32-36); Mean Corpuscular Hgb 30.6 pg (27.0-32.0); Mean Corpuscular Volume 94.6 fL (81-99); Mean Platelet Vol. 10.4 fl (6.2-12.0); Monocyte# 0.54 X10^3/uL; Monocyte% 10.6 % (0-10); NRBC Flagged by Analyzer 0 % (0-5); Neutrophil # 2.63 X10^3/uL (2.7-7.7); Neutrophil % 51.7 % (47-70); Platelet Count 260 K/mm3 (150-450); RBC Distribution Width CV 12.7 % (11.6-14.6); RBC Distribution Width SD 43.5 fl (35.1-43.9); Red Blood Count 4.61 M/mm3 (4.2-5.4); White Blood Count 5.1 K/mm3 (4.4-11.0)
[2019-09-05 12:25] LABS: ALB/GLOB Ratio 1.1 RATIO (0.9-2.4); AST(SGOT) 21 U/L (15-37); Alanine Aminotransfer ALT/SGPT 34 U/L (13-56); Albumin, Serum 3.9 g/dL (3.2-5.0); Alkaline Phosphatase 93 U/L (45-117); Anion Gap 4 (5-15); BUN 18 mg/dL (7-18); BUN/Creat Ratio 16.5 RATIO (10-20); Calcium,Total 9.3 mg/dL (8.5-10.1); Chloride 109 mmol/L (98-107); Cholesterol 245 mg/dL (200); Creatinine, Serum 1.09 mg/dL (0.55-1.02); EST Glomerular Filtration Rate 52 mL/min (>60); Est Glom Filt Rate - Afr Amer 63 mL/min (>60); Globulin 3.4 g/dL (2.2-4.2); Glucose 82 mg/dL (74-106); High Density Lipoprotein 56 mg/dL; Potassium 4.3 mmol/L (3.5-5.1); Protein, Total 7.3 g/dL (6.4-8.2); Sodium Level 141 mmol/L (136-145); Triglycerides 199 mg/dL; Very Low Density Lipoprotein 40 mg/dL (5-40)
== END | disposition home or self-care (01) ==
LOC: BIMLAB 08:44
PROVIDERS: PCP Internal Medicine; Referring Provider Internal Medicine; Visit Provider Internal Medicine
DX: I10 Essential (primary) hypertension (principal); E78.5 Hyperlipidemia, unspecified
CPT/HCPCS: 36415; 80053; 80061; 85025

== ENCOUNTER → 2020-02-21 08:23 | Outpatient (CLI) | payer OTHER, SELFPAY ==
[2020-01-30 08:47] VITALS: BMI 32.1
--- NOTE | 2020-02-21 08:25 | BI_ITS ---
MAMMOGRAPHY - BILATERAL SCREENING REASON FOR EXAM: Female, 74 years old. Routine annual screening examination. PERTINENT HISTORY: Grandmother with breast cancer. TECHNIQUE: Digital bilateral breast jordan (3D mammographic acquisition) in the CC and MLO projections. 2-D mediolateral oblique (MLO) and craniocaudad (CC) views of both breasts were obtained. CAD: Full Field Digital Mammography with Computer Added Detection was performed. COMPARISON: Comparison is made with prior study dated 02/07/2019 and 01/08/2018. FINDINGS: Breast Composition: There are scattered areas of fibroglandular density. There are no dominant masses or suspicious calcifications. Stable small benign-appearing bilateral axillary lymph nodes. No other significant abnormalities are identified. There has been no significant change since the prior study. BI/SCREEN MAMM (CAD) W/JORDAN BILAT IMPRESSION: Stable bilateral screening mammogram. Yearly follow-up mammogram recommended. (A) ASSESSMENT CATEGORY: BIRADS Category 2: Benign. A letter regarding these results will be sent to the patient by the facility within 30 days. Approximately 10% of breast cancers are not detected by mammography. A normal mammogram should not delay biopsy of a clinically suspicious abnormality. [id number] Electronically Signed: Emory Michelle, at 9:16 EST , Service support ,
== END ==
PROVIDERS: PCP Internal Medicine; Referring Provider Internal Medicine; Visit Provider Internal Medicine
DX: Z12.31 Encounter for screening mammogram for malignant neoplasm of breast (principal)
CPT/HCPCS: 77063; 77067

== ENCOUNTER → 2020-03-05 08:32 | Outpatient (CLI) | payer OTHER, SELFPAY ==
[2020-03-05 08:09] VITALS: BMI 32.3
[2020-03-05 12:47] LABS: Anion Gap 8 (5-15); BUN 16 mg/dL (7-18); BUN/Creat Ratio 14.7 RATIO (10-20); Calcium,Total 9.2 mg/dL (8.5-10.1); Chloride 107 mmol/L (98-107); Creatinine, Serum 1.09 mg/dL (0.55-1.02); EST Glomerular Filtration Rate 52 mL/min (>60); Est Glom Filt Rate - Afr Amer 63 mL/min (>60); Glucose 85 mg/dL (74-106); Potassium 4.2 mmol/L (3.5-5.1); Sodium Level 140 mmol/L (136-145)
== END ==
PROVIDERS: PCP Internal Medicine; Referring Provider Internal Medicine; Visit Provider Internal Medicine
DX: I10 Essential (primary) hypertension (principal)
CPT/HCPCS: 36415; 80048

== ENCOUNTER → 2020-09-03 09:10 | Outpatient (CLI) | payer OTHER, SELFPAY ==
[2020-09-03 08:41] VITALS: BMI 31.5
[2020-09-03 12:34] LABS: Absolute Lymphocyte Count 1.54 X10^3/uL (0.83-4.51); Absolute Neutrophil Count 2.5 X10^3/uL (2.0-7.7); Basophil# 0.06 X10^3/uL; Basophil% 1.3 % (0-1); Eosinophils% 2.1 % (0-5); Hematocrit 41.7 % (37-47); Hemoglobin 13.7 g/dL (12.0-15.0); Lymphocyte # 1.54 X10^3/ul (0.83-4.51); Lymphocyte % 32.8 % (19-41); Mean Corp Hgb Conc 32.9 g/dL (32-36); Mean Corpuscular Volume 91.4 fL (81-99); Mean Platelet Vol. 10.5 fl (6.2-12.0); Monocyte# 0.49 X10^3/uL; Monocyte% 10.4 % (0-10); NRBC Flagged by Analyzer 0 % (0-5); Neutrophil # 2.49 X10^3/uL (2.7-7.7); Platelet Count 264 K/mm3 (150-450); RBC Distribution Width CV 12.6 % (11.6-14.6); RBC Distribution Width SD 42.2 fl (35.1-43.9); Red Blood Count 4.56 M/mm3 (4.2-5.4); White Blood Count 4.7 K/mm3 (4.4-11.0)
[2020-09-03 13:14] LABS: ALB/GLOB Ratio 1.2 RATIO (0.9-2.4); AST(SGOT) 23 U/L (15-37); Alanine Aminotransfer ALT/SGPT 39 U/L (13-56); Alkaline Phosphatase 90 U/L (45-117); Anion Gap 4 (5-15); BUN 17 mg/dL (7-18); BUN/Creat Ratio 16.7 RATIO (10-20); Calcium,Total 9.3 mg/dL (8.5-10.1); Chloride 107 mmol/L (98-107); Cholesterol 263 mg/dL (200); Creatinine, Serum 1.02 mg/dL (0.55-1.02); EST Glomerular Filtration Rate 57 mL/min (>60); Est Glom Filt Rate - Afr Amer 68 mL/min (>60); Globulin 3.3 g/dL (2.2-4.2); Glucose 95 mg/dL (74-106); High Density Lipoprotein 55 mg/dL; Potassium 4.4 mmol/L (3.5-5.1); Protein, Total 7.3 g/dL (6.4-8.2); Sodium Level 140 mmol/L (136-145); Triglycerides 284 mg/dL; Very Low Density Lipoprotein 57 mg/dL (5-40)
== END ==
PROVIDERS: PCP Internal Medicine; Referring Provider Internal Medicine; Visit Provider Internal Medicine
DX: I10 Essential (primary) hypertension (principal); E78.5 Hyperlipidemia, unspecified
CPT/HCPCS: 36415; 80053; 80061; 85025

== ENCOUNTER → 2020-10-12 | Outpatient (CLI) | payer OTHER, SELFPAY ==
[2020-10-12 16:44] LABS: Bacteria 0 SEEN /hpf (None Seen); Mucous, Urine 0 SEEN /hpf (<or=2+); Red Blood Cells-Urine 0 SEEN /hpf (0-5); Squamous Epithelial Cells - UA 0 SEEN /hpf (5-10)
[2020-10-12 16:48] LABS: Color, Urine Straw (Yellow); Glucose, Dipstick 50 mg/dl (Normal); Ketone-Dipstick Negative (Negative); Leukocyte Esterase-Dipstick 100 /ul (Negative); Nitrite-Dipstick Negative (Negative); Occult Blood-Urine 10 /ul (Negative); Protein-Dipstick Negative (Negative); Urine Bilirubin Dipstick Negative (Negative); Urine Clarity Clear (Clear); Urine Urobilinogen Normal (Normal); Urine pH 6.5 (5.0 - 8.0)
[2020-10-12 16:53] LABS: White Blood Cells 0-5 SEEN /hpf (0-5)
== END | disposition home or self-care (01) ==
LOC: LABSPEC 10-15 11:00
PROVIDERS: Referring Provider Nurse Practitioner Family; Visit Provider Nurse Practitioner Family
DX: N39.0 Urinary tract infection, site not specified (principal)
CPT/HCPCS: 81001; 87086

== ENCOUNTER 2021-02-18 09:10 | Outpatient (CLI) | payer OTHER, SELFPAY ==
[2021-02-18 12:52] LABS: ALB/GLOB Ratio 1.1 RATIO (0.9-2.4); AST(SGOT) 17 U/L (15-37); Alanine Aminotransfer ALT/SGPT 32 U/L (13-56); Albumin, Serum 3.6 g/dL (3.2-5.0); Alkaline Phosphatase 90 U/L (45-117); Anion Gap 9 (5-15); BUN 20 mg/dL (7-18); BUN/Creat Ratio 18.3 RATIO (10-20); Calcium,Total 9.6 mg/dL (8.5-10.1); Chloride 105 mmol/L (98-107); Cholesterol 235 mg/dL (200); Creatinine, Serum 1.09 mg/dL (0.55-1.02); EST Glomerular Filtration Rate 52 mL/min (>60); Est Glom Filt Rate - Afr Amer 63 mL/min (>60); Globulin 3.4 g/dL (2.2-4.2); Glucose 95 mg/dL (74-106); High Density Lipoprotein 56 mg/dL; Potassium 4.2 mmol/L (3.5-5.1); Sodium Level 141 mmol/L (136-145); Triglycerides 225 mg/dL; Very Low Density Lipoprotein 45 mg/dL (5-40)
== END 2021-02-18 23:59 | disposition short-term general hospital (02) ==
LOC: BIMLAB 09:11
PROVIDERS: PCP Internal Medicine; Visit Provider Internal Medicine
DX: I10 Essential (primary) hypertension (principal); E78.5 Hyperlipidemia, unspecified
CPT/HCPCS: 36415; 80053; 80061

== ENCOUNTER 2021-02-25 09:12 | Outpatient (CLI) | payer OTHER, SELFPAY ==
[2020-09-03 08:41] VITALS: BMI 31.5
--- NOTE | 2021-02-25 09:14 | BI_ITS ---
MAMMOGRAPHY - BILATERAL SCREENING REASON FOR EXAM: Female, 75 years old. Routine annual screening examination. PERTINENT HISTORY: Grandmother with breast cancer. Remote left excisional breast biopsy. TECHNIQUE: Digital bilateral breast jordan (3D mammographic acquisition) in the CC and MLO projections. 2-D mediolateral oblique (MLO) and craniocaudad (CC) views of both breasts were obtained. CAD: Full Field Digital Mammography with Computer Added Detection was performed. COMPARISON: Comparison is made with prior study dated 02/21/2020 and 02/07/2019. FINDINGS: Breast Composition: There are scattered areas of fibroglandular density. There are no dominant masses or suspicious calcifications. Stable small benign-appearing bilateral axillary lymph nodes. No other significant abnormalities are identified. There has been no significant change since the prior study. BI/SCRN MAMM (CAD)W/JORDAN BILAT IMPRESSION: Stable bilateral screening mammogram. Yearly follow-up mammogram recommended. (A) ASSESSMENT CATEGORY: BIRADS Category 2: Benign. A letter regarding these results will be sent to the patient by the facility within 30 days. Approximately 10% of breast cancers are not detected by mammography. A normal mammogram should not delay biopsy of a clinically suspicious abnormality. [id number] Electronically Signed: Emory Michelle MD at 11:04 EST , Service support ,
--- NOTE | 2021-02-25 09:31 | BD_ITS ---
STUDY: DUAL ENERGY X-RAY ABSORPTIOMETRY / DXA REASON FOR EXAM: Female, 75 years old. Osteopenia TECHNIQUE: Bone Mineral Density (BMD) measurements of lumbar spine and left hip were obtained. COMPARISON: Comparison is made with prior study dated 02/07/2019. FINDINGS: Lumbar Spine (L1-L4): g/cm2 (0.957) / T-score (-0.8) / Z-score (1.5) Findings are suggestive of normal bone density with a low fracture risk. Left Femur Total: g/cm2 (0.850) / T-score (-0.8) / Z-score (0.9) Left Femoral Neck: g/cm2 (0.680) / T-score (-1.5) / Z-score (0.5) The T-Scores on the most recent prior examination were: Lumbar Spine (L1-L4): There has been worsening of bone density since the previous examination. Left Femur Total: which represents an improvement of 6.4%. BD/Dexa Bone Density Study IMPRESSION: The patient is considered osteopenic as outlined below according to World Tahir Organization (WHO) criteria with a moderate fracture risk. There has been worsening of bone density since the previous examination. Reference Information: The T-score is the number of standard deviations above or below the standard which is normal for young adults at their peak bone mineral density. The World Health Organization (WHO) interprets the T-scores as follows: Above -1 Normal bone density Between -1 and -2.5 Osteopenia Equal to / or below -2.5 Osteoporosis As a practical clinical guideline, osteopenia may be graded as follows: Mild -1 through -1.5 Moderate -1.6 through -2.0 Severe -2.1 through -2.4 The Z-score is the number of standard deviations above or below age-matched controls. A Z-score of less than -1.5 would be considered abnormal. References: 1. NIH Osteoporosis and Related Bone Diseases www osteo.org 2. International Society for Clinical Densitometry www iscd.org 3. National Osteoporosis Foundation www nof.org Electronically Signed: Emory Michelle MD at 9:42 EST , Service support ,
== END 2021-02-25 23:59 | disposition short-term general hospital (02) ==
LOC: OPBD 09:13
PROVIDERS: PCP Internal Medicine; Referring Provider Internal Medicine; Visit Provider Internal Medicine
DX: Z12.31 Encounter for screening mammogram for malignant neoplasm of breast (principal); M85.80 Other specified disorders of bone density and structure, unspecified site
CPT/HCPCS: 77063; 77067; 77080

== ENCOUNTER → 2021-06-10 | Outpatient (CLI) | payer OTHER, SELFPAY ==
[2021-06-10 15:05] LABS: Absolute Lymphocyte Count 1.34 X10^3/uL (0.83-4.51); Absolute Neutrophil Count 7.1 X10^3/uL (2.0-7.7); Basophil# 0.06 X10^3/uL; Basophil% 0.6 % (0-1); Eosinophil# 0.04 X10^3/uL; Eosinophils% 0.4 % (0-5); Hematocrit 41.6 % (37-47); Hemoglobin 13.9 g/dL (12.0-15.0); Lymphocyte # 1.34 X10^3/ul (0.83-4.51); Mean Corp Hgb Conc 33.4 g/dL (32-36); Mean Corpuscular Hgb 30.8 pg (27.0-32.0); Mean Platelet Vol. 10.5 fl (6.2-12.0); Monocyte# 0.93 X10^3/uL; Monocyte% 9.7 % (0-10); NRBC Flagged by Analyzer 0 % (0-5); Neutrophil # 7.14 X10^3/uL (2.7-7.7); Neutrophil % 74.6 % (47-70); Platelet Count 336 K/mm3 (150-450); RBC Distribution Width CV 12.3 % (11.6-14.6); RBC Distribution Width SD 41.5 fl (35.1-43.9); Red Blood Count 4.52 M/mm3 (4.2-5.4); White Blood Count 9.6 K/mm3 (4.4-11.0)
[2021-06-10 15:20] LABS: Color, Urine Yellow (Yellow); Glucose, Dipstick Normal (Normal); Ketone-Dipstick Negative (Negative); Leukocyte Esterase-Dipstick 500 /ul (Negative); Nitrite-Dipstick Negative (Negative); Occult Blood-Urine 10 /ul (Negative); Protein-Dipstick Negative (Negative); Urine Bilirubin Dipstick Negative (Negative); Urine Clarity Clear (Clear); Urine Urobilinogen Normal (Normal)
[2021-06-10 15:25] LABS: ALB/GLOB Ratio 0.9 RATIO (0.9-2.4); AST(SGOT) 23 U/L (15-37); Alanine Aminotransfer ALT/SGPT 36 U/L (13-56); Albumin, Serum 3.7 g/dL (3.2-5.0); Alkaline Phosphatase 182 U/L (45-117); Anion Gap 8 (5-15); BUN 14 mg/dL (7-18); BUN/Creat Ratio 11.7 RATIO (10-20); Calcium,Total 8.9 mg/dL (8.5-10.1); Chloride 103 mmol/L (98-107); EST Glomerular Filtration Rate 47 mL/min (>60); Est Glom Filt Rate - Afr Amer 57 mL/min (>60); Globulin 4.1 g/dL (2.2-4.2); Glucose 92 mg/dL (74-106); Potassium 4.1 mmol/L (3.5-5.1); Protein, Total 7.8 g/dL (6.4-8.2); Sodium Level 137 mmol/L (136-145)
[2021-06-10 15:28] LABS: Bacteria 0 SEEN /hpf (None Seen); Mucous, Urine 0 SEEN /hpf (<or=2+); Red Blood Cells-Urine 0 SEEN /hpf (0-5)
[2021-06-10 15:29] LABS: White Blood Cells 5-10 SEEN /hpf (0-5)
[2021-06-10 15:30] LABS: Squamous Epithelial Cells - UA 0-5 SEEN /hpf (5-10)
[2021-06-10 15:31] LABS: Transitional Epithelial - Ur 0-5 SEEN /hpf (0-5)
== END | disposition home or self-care (01) ==
LOC: BIMLAB 11:53
PROVIDERS: PCP Internal Medicine; Referring Provider Internal Medicine; Visit Provider Internal Medicine
DX: R53.81 Other malaise (principal); R53.83 Other fatigue; R50.9 Fever, unspecified; R10.2 Pelvic and perineal pain
CPT/HCPCS: 36415; 80053; 81001; 85025; 87086; 87088

== ENCOUNTER → 2021-06-11 | Outpatient (CLI) | payer OTHER, SELFPAY ==
--- NOTE | 2021-06-11 14:35 | RAD_ITS ---
STUDY: X-RAY CHEST REASON FOR EXAM: Female, 75 years old. Fever, fatigue and malaise TECHNIQUE: PA and lateral COMPARISON: None. FINDINGS: The lungs demonstrate minimal scarring with a linear density at the left base.. There is no demonstrated pleural abnormality. Normal size heart. Normal mediastinum and natalya. Normal visualized pulmonary arteries. Normal visualized aortic arch and descending thoracic aorta. Normal visualized thoracic spine. Normal visualized ribs, clavicles, and shoulders. There is no demonstrated abnormality of the visualized soft tissue structures of the upper abdomen. RAD/Chest PA and Lateral IMPRESSION: Normal x-ray examination of the chest. Electronically Signed: Jose F Sanchez MD at 0:29 EDT ,
== END | disposition home or self-care (01) ==
LOC: RAD 14:28
PROVIDERS: PCP Internal Medicine; Referring Provider Internal Medicine; Visit Provider Internal Medicine
DX: R50.9 Fever, unspecified (principal); R53.81 Other malaise; R53.83 Other fatigue
CPT/HCPCS: 71046

== ENCOUNTER → 2021-06-25 | Outpatient (CLI) | payer OTHER, SELFPAY ==
--- NOTE | 2021-06-25 07:54 | CT_ITS ---
STUDY: CT ABDOMEN AND PELVIS WITH CONTRAST REASON FOR EXAM: Female, 75 years old. Fever, Abdominal pain, Change in bowel habit RADIATION DOSAGE (If Supplied By Facility): CTDIvol = ( 17.96 ) mGy, DLP = ( 881.62 ) mGycm TECHNIQUE: Transaxial images were obtained from the dome of the diaphragm to the symphysis pubis with oral contrast. Oral and amp; IV Readi-CAT and amp; 100mL Isovue-300 was administered. Sagittal and coronal images were reconstructed. Individualized dose optimization techniques were used for this CT. COMPARISON: Comparison is made with prior study 06/25/2010. FINDINGS: The visualized lung bases are unremarkable. The visualized portions of the heart are within normal limits. There is decreased attenuation of the liver consistent with steatosis. Normal gallbladder and extrahepatic biliary system. Normal spleen. Normal pancreas. Normal bilateral adrenal glands. Normal right kidney. Normal left kidney. Normal visualized stomach. Normal small intestine. There is diverticulosis, with thickening of the colon wall, and pericolonic inflammation changes consistent with acute diverticulitis. The appendix is visualized and appears normal. There is scattered atherosclerotic calcification of the abdominal aorta, without a demonstrated aneurysm. Normal inferior vena cava. Normal retroperitoneum. Normal urinary bladder. Normal abdominal wall. There are diffuse degenerative changes of the visualized lumbar spine. CT/Abdomen/Pelvis WITH Contrast IMPRESSION: Sigmoid diverticulosis with thickening and increased markings in the surrounding perisigmoid peritoneal fat in keeping with the acute sigmoid diverticulitis. No evidence of abscess at this time. Electronically Signed: Emory Michelle MD at 8:41 EDT ,
== END | disposition home or self-care (01) ==
PROVIDERS: PCP Internal Medicine; Visit Provider Internal Medicine
DX: R10.2 Pelvic and perineal pain (principal); R50.9 Fever, unspecified; R53.81 Other malaise; R53.83 Other fatigue
CPT/HCPCS: 74177; Q9967

== ENCOUNTER → 2021-08-19 | Outpatient (CLI) | payer OTHER, SELFPAY ==
[2021-08-19 12:33] LABS: Anion Gap 3 (5-15); BUN 21 mg/dL (7-18); BUN/Creat Ratio 17.8 RATIO (10-20); Calcium,Total 9.4 mg/dL (8.5-10.1); Chloride 106 mmol/L (98-107); Creatinine, Serum 1.18 mg/dL (0.55-1.02); EST Glomerular Filtration Rate 48 mL/min (>60); Est Glom Filt Rate - Afr Amer 58 mL/min (>60); Glucose 90 mg/dL (74-106); Potassium 4.3 mmol/L (3.5-5.1); Sodium Level 139 mmol/L (136-145)
== END | disposition home or self-care (01) ==
LOC: BIMLAB 09:24
PROVIDERS: PCP Internal Medicine; Referring Provider Internal Medicine; Visit Provider Internal Medicine
DX: I10 Essential (primary) hypertension (principal)
CPT/HCPCS: 36415; 80048

== ENCOUNTER → 2021-10-15 | Outpatient (CLI) | payer OTHER, SELFPAY ==
[2021-10-15 14:39] LABS: Mucous, Urine 0 SEEN /hpf (<or=2+)
[2021-10-15 15:37] LABS: Color, Urine Yellow (Yellow); Glucose, Dipstick Normal (Normal); Ketone-Dipstick 5 mg/dl (Negative); Leukocyte Esterase-Dipstick 500 /ul (Negative); Nitrite-Dipstick Negative (Negative); Occult Blood-Urine 25 /ul (Negative); Protein-Dipstick 15 mg/dl (Negative); Urine Bilirubin Dipstick Negative (Negative); Urine Clarity Sl. Cloudy (Clear); Urine Urobilinogen Normal (Normal)
[2021-10-15 15:59] LABS: Bacteria 3+ /hpf (None Seen); Red Blood Cells-Urine 5-10 SEEN /hpf (0-5); Squamous Epithelial Cells - UA 10-25 SEEN /hpf (5-10); White Blood Cells 50-100 SEEN /hpf (0-5)
== END | disposition home or self-care (01) ==
PROVIDERS: PCP Internal Medicine; Referring Provider Internal Medicine; Visit Provider Internal Medicine
DX: R30.0 Dysuria (principal)
CPT/HCPCS: 81001; 87086; 87088

== ENCOUNTER → 2021-12-10 | Outpatient (CLI) | payer OTHER, SELFPAY ==
[2021-12-10 13:17] LABS: Anion Gap 3 (5-15); BUN 20 mg/dL (7-18); BUN/Creat Ratio 17.5 RATIO (10-20); Calcium,Total 9.8 mg/dL (8.5-10.1); Chloride 108 mmol/L (98-107); Creatinine, Serum 1.14 mg/dL (0.55-1.02); EST Glomerular Filtration Rate 50 mL/min (>60); Est Glom Filt Rate - Afr Amer 60 mL/min (>60); Glucose 91 mg/dL (74-106); Potassium 4.7 mmol/L (3.5-5.1); Sodium Level 139 mmol/L (136-145)
== END | disposition home or self-care (01) ==
LOC: BIMLAB 09:27
PROVIDERS: PCP Internal Medicine; Referring Provider Internal Medicine; Visit Provider Internal Medicine
DX: I10 Essential (primary) hypertension (principal)
CPT/HCPCS: 36415; 80048

== ENCOUNTER → 2022-03-25 | Outpatient (CLI) | payer OTHER, SELFPAY ==
--- NOTE | 2022-03-25 08:28 | BI_ITS ---
MAMMOGRAPHY - BILATERAL SCREENING REASON FOR EXAM: Female, 76 years old. Routine annual screening examination. PERTINENT HISTORY: Grandmother with breast cancer. Remote left excisional breast biopsy. TECHNIQUE: Digital bilateral breast jordan (3D mammographic acquisition) in the CC and MLO projections. 2-D mediolateral oblique (MLO) and craniocaudad (CC) views of both breasts were obtained. CAD: Full Field Digital Mammography with Computer Added Detection was performed. COMPARISON: Comparison is made with prior study dated 02/25/2021 and 02/21/2020. FINDINGS: Breast Composition: There are scattered areas of fibroglandular density. There are no dominant masses or suspicious calcifications. Stable benign-appearing bilateral axillary lymph nodes. No other significant abnormalities are identified. There has been no significant change since the prior study. BI/SCRN MAMM (CAD)W/JORDAN BILAT IMPRESSION: Stable bilateral screening mammogram. Yearly follow-up mammogram recommended. (A) ASSESSMENT CATEGORY: BIRADS Category 2: Benign. A letter regarding these results will be sent to the patient by the facility within 30 days. Approximately 10% of breast cancers are not detected by mammography. A normal mammogram should not delay biopsy of a clinically suspicious abnormality. [id number] Electronically Signed: Emory Michelle MD at 9:41 EST ,
== END | disposition home or self-care (01) ==
LOC: OPBI 08:26
PROVIDERS: PCP Internal Medicine; Visit Provider Internal Medicine
DX: Z12.31 Encounter for screening mammogram for malignant neoplasm of breast (principal)
CPT/HCPCS: 77063; 77067

== ENCOUNTER → 2022-04-01 | Outpatient (CLI) | payer OTHER, SELFPAY ==
[2022-04-01 12:39] LABS: Absolute Lymphocyte Count 1.79 X10^3/uL (0.83-4.51); Absolute Neutrophil Count 2.1 X10^3/uL (2.0-7.7); Basophil# 0.06 X10^3/uL; Basophil% 1.3 % (0-1); Eosinophil# 0.09 X10^3/uL; Hematocrit 42.1 % (37-47); Hemoglobin 13.7 g/dL (12.0-15.0); Lymphocyte # 1.79 X10^3/ul (0.83-4.51); Mean Corp Hgb Conc 32.5 g/dL (32-36); Mean Corpuscular Volume 92.3 fL (81-99); Mean Platelet Vol. 10.6 fl (6.2-12.0); Monocyte% 10.9 % (0-10); NRBC Flagged by Analyzer 0 % (0-5); Neutrophil # 2.14 X10^3/uL (2.7-7.7); Neutrophil % 46.6 % (47-70); Platelet Count 277 K/mm3 (150-450); RBC Distribution Width CV 12.8 % (11.6-14.6); RBC Distribution Width SD 43.3 fl (35.1-43.9); Red Blood Count 4.56 M/mm3 (4.2-5.4); White Blood Count 4.6 K/mm3 (4.4-11.0)
[2022-04-01 13:28] LABS: ALB/GLOB Ratio 1.2 RATIO (0.9-2.4); AST(SGOT) 25 U/L (15-37); Alanine Aminotransfer ALT/SGPT 36 U/L (13-56); Alkaline Phosphatase 90 U/L (45-117); Anion Gap 6 (5-15); BUN 25 mg/dL (7-18); BUN/Creat Ratio 19.4 RATIO (10-20); Chloride 108 mmol/L (98-107); Cholesterol 263 mg/dL (200); Creatinine, Serum 1.29 mg/dL (0.55-1.02); EST Glomerular Filtration Rate 43 mL/min (>60); Est Glom Filt Rate - Afr Amer 52 mL/min (>60); Globulin 3.3 g/dL (2.2-4.2); Glucose 95 mg/dL (74-106); High Density Lipoprotein 60 mg/dL; Potassium 4.4 mmol/L (3.5-5.1); Protein, Total 7.3 g/dL (6.4-8.2); Sodium Level 141 mmol/L (136-145); Triglycerides 168 mg/dL; Very Low Density Lipoprotein 34 mg/dL (5-40)
== END | disposition home or self-care (01) ==
LOC: BIMLAB 09:06
PROVIDERS: PCP Internal Medicine; Referring Provider Internal Medicine; Visit Provider Internal Medicine
DX: I10 Essential (primary) hypertension (principal); M85.80 Other specified disorders of bone density and structure, unspecified site
CPT/HCPCS: 36415; 80053; 80061; 82306; 85025

== ENCOUNTER → 2022-10-28 | Outpatient (CLI) | payer OTHER, SELFPAY ==
[2022-10-28 13:08] LABS: Anion Gap 4 (5-15); BUN 20 mg/dL (7-18); BUN/Creat Ratio 15.2 RATIO (10-20); Calcium,Total 9.4 mg/dL (8.5-10.1); Chloride 109 mmol/L (98-107); Cholesterol 288 mg/dL (200); Creatinine, Serum 1.32 mg/dL (0.55-1.02); EST Glomerular Filtration Rate 42 mL/min (>60); Est Glom Filt Rate - Afr Amer 50 mL/min (>60); Glucose 100 mg/dL (74-106); High Density Lipoprotein 59 mg/dL; Potassium 4.3 mmol/L (3.5-5.1); Sodium Level 141 mmol/L (136-145); Triglycerides 274 mg/dL; Very Low Density Lipoprotein 55 mg/dL (5-40)
== END | disposition home or self-care (01) ==
LOC: BIMLAB 09:07
PROVIDERS: PCP Internal Medicine; Referring Provider Internal Medicine; Visit Provider Internal Medicine
DX: I10 Essential (primary) hypertension (principal); E78.5 Hyperlipidemia, unspecified
CPT/HCPCS: 36415; 80048; 80061

== ENCOUNTER → 2023-02-11 | Outpatient (CLI) | payer OTHER, SELFPAY ==
--- OUTSIDE RECORDS SUMMARY | 2023-02-11 08:59 | XMS RPT_ITS | CCD ---
Author Name Unknown Address [address] [place] [address] Organization [facility] Care Team Providers Care Life Skills Trainer Name Role Phone FELIPA LOZASANDIE Espinosa Unavailable Unavailable DAHIANA HAWKINS Unavailable Unavailable Results Test Name Value Interpretation Reference Range Facil ity Encounters Encounter Date Encounter Type Care Provider Facility Start: 04-01-2017 End: 04-01-2017 Emergency department patient visit [facility] Facil ity:B Payers Date Payer Category Payer Unknown [id number] Summary Purpose Family History No Family History Records Found Advance Directives No Advanced Directives Records Found Additional Source Comments INFORMATION SOURCE (unrecogn ized section and content) FOR RECORDS PERTAINING TO PATIENTS WHO ARE OR HAVE BEEN ENROLLED IN A CHEMICAL DEPENDENCY/SUBSTANCEABUSE PROGRAM, SOME INFORMATION MAY BE OMITTED. This clinical summary was aggregated from multiple sources. Caution should be exercised in using it in the provision of clinical care. This summary normalizes information from multiple sources, and as a consequence, information in this document may materially change the coding, format and clinical context of patient data. In addition, data may be omitted in some cases. CLINICAL DECISIONS SHOULD BE BASED ON THE PRIMARY CLINICAL RECORDS. [employer] provides no warranty or guarantee of the accuracy or completeness of information in this document.
[2023-02-11 12:50] LABS: Cholesterol 230 mg/dL (200); High Density Lipoprotein 61 mg/dL; Triglycerides 201 mg/dL; Very Low Density Lipoprotein 40 mg/dL (5-40)
== END | disposition home or self-care (01) ==
LOC: BIMLAB 08:40
PROVIDERS: PCP Internal Medicine; Referring Provider Internal Medicine; Visit Provider Internal Medicine
DX: E78.2 Mixed hyperlipidemia (principal)
CPT/HCPCS: 36415; 80061

== ENCOUNTER → 2023-04-14 | Outpatient (CLI) | payer OTHER, SELFPAY ==
--- NOTE | 2023-04-14 09:24 | BI_ITS ---
MAMMOGRAPHY - BILATERAL SCREENING 3-D TOMOSYNTHESIS REASON FOR EXAM: Female, 77 years old. SCREENING PERTINENT HISTORY: No significant family history. TECHNIQUE: 2-D mammograms and 3-D Tomosynthesis of the breast (s) were performed. CAD was performed. COMPARISON: 03/25/2022 FINDINGS: The breast composition is composed of scattered fibroglandular density. Scattered benign calcifications are seen. No dense spiculated masses or suspicious microcalcifications are identified. No architectural distortion is identified. There is no skin thickening or retraction. There has been no significant change since the prior study. BI/SCRN MAMM (CAD)W/JORDAN BILAT IMPRESSION: No mammographic signs of malignancy. Routine yearly mammograms recommended. ASSESSMENT CATEGORY: BIRADS Category 1: Negative. A letter regarding these results will be sent to the patient by the facility within 30 days. FOLLOW UP RECOMMENDATION: Yearly follow up mammogram recommended. (A) Approximately 10% of breast cancers are not detected by mammography. A normal mammogram should not delay biopsy of a clinically suspicious abnormality. Electronically Signed: Johan Aguilar MD at 19:36 EST ,
--- NOTE | 2023-04-14 09:27 | BD_ITS ---
STUDY: DUAL ENERGY X-RAY ABSORPTIOMETRY / DXA REASON FOR EXAM: Female, 77 years old. Post Menopausal TECHNIQUE: Bone Mineral Density (BMD) measurements of lumbar spine and bilateral hips were obtained. COMPARISON: Comparison is made with prior study dated February 25, 2021. FINDINGS: Lumbar Spine (L1-L4): g/cm2 (0.861) / T-score (-1.1) / Z-score (1.2) Findings are suggestive of osteopenia with a low fracture risk. Left Femur Total: g/cm2 (0.834) / T-score (-0.9) / Z-score (0.9) Left Femoral Neck: g/cm2 (0.687) / T-score (-1.5) / Z-score (0.7) Right Femur Total: g/cm2 (0.784) / T-score (-1.3) / Z-score (0.5) Right Femoral Neck: g/cm2 (0.674) / T-score (-1.6) / Z-score (0.5) The T-Scores on the most recent prior examination were: Lumbar Spine (L1-L4): There has been worsening of bone density since the previous examination. Left Femur Total: which represents a worsening of 1.9%. Right Femur Total: which represents an improvement of 4.1%. BD/Dexa Bone Density Study IMPRESSION: The patient is considered osteopenic as outlined below according to World Tahir Organization (WHO) criteria with a moderate fracture risk. There has been worsening of bone density since the previous examination. Reference Information: The T-score is the number of standard deviations above or below the standard which is normal for young adults at their peak bone mineral density. The World Health Organization (WHO) interprets the T-scores as follows: Above -1 Normal bone density Between -1 and -2.5 Osteopenia Equal to / or below -2.5 Osteoporosis As a practical clinical guideline, osteopenia may be graded as follows: Mild -1 through -1.5 Moderate -1.6 through -2.0 Severe -2.1 through -2.4 The Z-score is the number of standard deviations above or below age-matched controls. A Z-score of less than -1.5 would be considered abnormal. References: 1. NIH Osteoporosis and Related Bone Diseases www osteo.org 2. International Society for Clinical Densitometry www iscd.org 3. National Osteoporosis Foundation www nof.org Electronically Signed: Emory Michelle MD at 14:50 EDT ,
--- OUTSIDE RECORDS SUMMARY | 2023-04-14 09:50 | XMS RPT_ITS | CCD ---
Author Name Unknown Address [address] [place] [address] Organization [facility] Care Team Providers Care Network Engineering Advisor Name Role Phone FELIPA OLZASANDIE Espinosa Unavailable Unavailable DAHIANA HAWKINS Unavailable Unavailable Results Test Name Value Interpretation Reference Range Facil ity Encounters Encounter Date Encounter Type Care Provider Facility Start: 04-01-2017 End: 04-01-2017 Emergency department patient visit [facility] Facil ity:B Payers Date Payer Category Payer Unknown [id number] Summary Purpose Family History No Family History [...] BE BASED ON THE PRIMARY CLINICAL RECORDS. [employer] provides no warranty or guarantee of the accuracy or completeness of information in this document.
== END | disposition home or self-care (01) ==
LOC: OPBD 09:21
PROVIDERS: PCP Internal Medicine; Referring Provider Internal Medicine; Visit Provider Internal Medicine
DX: Z12.31 Encounter for screening mammogram for malignant neoplasm of breast (principal); Z78.0 Asymptomatic menopausal state
CPT/HCPCS: 77063; 77067; 77080

== ENCOUNTER → 2023-06-09 | Outpatient (CLI) | payer OTHER, SELFPAY ==
[2023-06-09 12:06] LABS: Absolute Lymphocyte Count 1.57 X10^3/uL (0.83-4.51); Absolute Neutrophil Count 2.4 X10^3/uL (2.0-7.7); Basophil# 0.07 X10^3/uL; Basophil% 1.5 % (0-1); Eosinophil# 0.12 X10^3/uL; Eosinophils% 2.6 % (0-5); Hematocrit 41.4 % (37-47); Hemoglobin 13.6 g/dL (12.0-15.0); Lymphocyte # 1.57 X10^3/ul (0.83-4.51); Lymphocyte % 34.1 % (19-41); Mean Corp Hgb Conc 32.9 g/dL (32-36); Mean Corpuscular Hgb 30.7 pg (27.0-32.0); Mean Corpuscular Volume 93.5 fL (81-99); Mean Platelet Vol. 10.5 fl (6.2-12.0); Monocyte# 0.47 X10^3/uL; Monocyte% 10.2 % (0-10); NRBC Flagged by Analyzer 0 % (0-5); Neutrophil # 2.35 X10^3/uL (2.7-7.7); Neutrophil % 51.2 % (47-70); Platelet Count 248 K/mm3 (150-450); RBC Distribution Width CV 12.6 % (11.6-14.6); RBC Distribution Width SD 43.2 fl (35.1-43.9); Red Blood Count 4.43 M/mm3 (4.2-5.4); White Blood Count 4.6 K/mm3 (4.4-11.0)
[2023-06-09 12:24] LABS: ALB/GLOB Ratio 1.1 RATIO (0.9-2.4); AST(SGOT) 19 U/L (15-37); Alanine Aminotransfer ALT/SGPT 27 U/L (13-56); Albumin, Serum 3.6 g/dL (3.2-5.0); Alkaline Phosphatase 82 U/L (45-117); Anion Gap 3 (5-15); BUN 19 mg/dL (7-18); BUN/Creat Ratio 13.5 RATIO (10-20); Calcium,Total 9.5 mg/dL (8.5-10.1); Chloride 108 mmol/L (98-107); Cholesterol 226 mg/dL (200); Creatinine, Serum 1.41 mg/dL (0.55-1.02); EST Glomerular Filtration Rate 39 mL/min (>60); Est Glom Filt Rate - Afr Amer 47 mL/min (>60); Globulin 3.2 g/dL (2.2-4.2); Glucose 93 mg/dL (74-106); High Density Lipoprotein 58 mg/dL; Potassium 4.5 mmol/L (3.5-5.1); Protein, Total 6.8 g/dL (6.4-8.2); Sodium Level 139 mmol/L (136-145); Triglycerides 216 mg/dL; Very Low Density Lipoprotein 43 mg/dL (5-40)
== END | disposition home or self-care (01) ==
LOC: BIMLAB 08:59
PROVIDERS: PCP Internal Medicine; Visit Provider Internal Medicine
DX: I10 Essential (primary) hypertension (principal)
CPT/HCPCS: 36415; 80053; 80061; 85025

== ENCOUNTER → 2023-10-12 | Outpatient (CLI) | payer OTHER, SELFPAY ==
[2023-10-12 12:39] LABS: Anion Gap 5 (5-15); BUN 17 mg/dL (7-18); BUN/Creat Ratio 12.9 RATIO (10-20); CPK Total, Creatine Kinase 81 U/L (26-192); Calcium,Total 10.1 mg/dL (8.5-10.1); Chloride 104 mmol/L (98-107); Creatinine, Serum 1.32 mg/dL (0.55-1.02); EST Glomerular Filtration Rate 42 mL/min (>60); Est Glom Filt Rate - Afr Amer 50 mL/min (>60); Glucose 100 mg/dL (74-106); Potassium 4.3 mmol/L (3.5-5.1); Sodium Level 137 mmol/L (136-145)
== END | disposition home or self-care (01) ==
LOC: BIMLAB 09:07
PROVIDERS: PCP Internal Medicine; Visit Provider Internal Medicine
DX: N18.30 Chronic kidney disease, stage 3 unspecified (principal); M79.10 Myalgia, unspecified site
CPT/HCPCS: 36415; 80048; 82550

== ENCOUNTER → 2024-01-24 | Outpatient (CLI) | payer OTHER, SELFPAY ==
[2024-01-24 13:22] LABS: Anion Gap 7 (5-15); BUN 18 mg/dL (7-18); Calcium,Total 9.2 mg/dL (8.5-10.1); Chloride 106 mmol/L (98-107); Cholesterol 228 mg/dL (200); Creatinine, Serum 1.29 mg/dL (0.55-1.02); EST Glomerular Filtration Rate 43 mL/min (>60); Est Glom Filt Rate - Afr Amer 52 mL/min (>60); Glucose 97 mg/dL (74-106); High Density Lipoprotein 64 mg/dL; Potassium 4.1 mmol/L (3.5-5.1); Sodium Level 138 mmol/L (136-145); Triglycerides 207 mg/dL; Very Low Density Lipoprotein 41 mg/dL (5-40)
[2024-01-24 18:57] LABS: Vitamin D,25 Hydroxy 31.4 ng/mL
== END | disposition home or self-care (01) ==
LOC: BIMLAB 09:07
PROVIDERS: PCP Internal Medicine; Referring Provider Internal Medicine; Visit Provider Internal Medicine
DX: I10 Essential (primary) hypertension (principal); M85.80 Other specified disorders of bone density and structure, unspecified site; E78.2 Mixed hyperlipidemia
CPT/HCPCS: 36415; 80048; 80061; 82306

== ENCOUNTER → 2024-04-14 | Outpatient (CLI) | payer OTHER, SELFPAY ==
--- NOTE | 2024-04-14 08:15 | BI_ITS ---
PROCEDURE: SCRN MAMM (CAD)W/JORDAN BILAT REASON FOR EXAM: F, Age 78 y/o, presents for annual screening mammogram. Family history of breast cancer in maternal grandmother and a maternal great aunt. TECHNIQUE: Bilateral screening digital breast tomosynthesis with 2D and 3D images. Computer aided detection. COMPARISON: 04/14/2023, 03/25/2022 FINDINGS: There are scattered areas of fibroglandular density. No suspicious masses, areas of developing architectural distortion, or suspicious calcifications. BI/SCRN MAMM (CAD)W/JORDAN BILAT IMPRESSION: There is no mammographic evidence of malignancy. BI-RADS 1: NEGATIVE. RECOMMEND ANNUAL MAMMOGRAPHIC SCREENING. Follow-up code: Routine Follow-up The patient will be notified of the results by letter. Reading Location: [id number]
== END | disposition home or self-care (01) ==
LOC: OPBI 08:10
PROVIDERS: PCP Internal Medicine; Referring Provider Internal Medicine; Visit Provider Internal Medicine
DX: Z12.31 Encounter for screening mammogram for malignant neoplasm of breast (principal)
CPT/HCPCS: 77063; 77067

== ENCOUNTER 2024-05-22 08:45 | Outpatient (CLI) | payer MEDICARE, OTHER, SELFPAY ==
[2024-05-22 12:42] LABS: Absolute Lymphocyte Count 1.69 X10^3/uL (0.83-4.51); Absolute Neutrophil Count 2.5 X10^3/uL (2.0-7.7); Basophil# 0.08 X10^3/uL; Basophil% 1.6 % (0-1); Eosinophil# 0.13 X10^3/uL; Eosinophils% 2.6 % (0-5); Hematocrit 41.4 % (37-47); Hemoglobin 13.8 g/dL (12.0-15.0); Lymphocyte # 1.69 X10^3/ul (0.83-4.51); Lymphocyte % 34.3 % (19-41); Mean Corp Hgb Conc 33.3 g/dL (32-36); Mean Corpuscular Hgb 30.6 pg (27.0-32.0); Mean Corpuscular Volume 91.8 fL (81-99); Mean Platelet Vol. 10.6 fl (6.2-12.0); Monocyte# 0.47 X10^3/uL; Monocyte% 9.5 % (0-10); NRBC Flagged by Analyzer 0 % (0-5); Neutrophil # 2.53 X10^3/uL (2.7-7.7); Neutrophil % 51.4 % (47-70); Platelet Count 255 K/mm3 (150-450); RBC Distribution Width CV 12.7 % (11.6-14.6); RBC Distribution Width SD 42.9 fl (35.1-43.9); Red Blood Count 4.51 M/mm3 (4.2-5.4); White Blood Count 4.9 K/mm3 (4.4-11.0)
[2024-05-22 13:28] LABS: ALB/GLOB Ratio 1.7 RATIO (0.9-2.4); AST(SGOT) 21 U/L (<=31); Alanine Aminotransfer ALT/SGPT 21 U/L (<=34); Albumin, Serum 4.2 g/dL (3.4-4.8); Alkaline Phosphatase 92 U/L (35-104); Anion Gap 10 (5-15); BUN 20 mg/dL (4-19); BUN/Creat Ratio 15.9 RATIO (10-20); Calcium,Total 9.8 mg/dL (7.6-11.0); Carbon Dioxide 24.4 mmol/L (21.0-32.0); Chloride 104 mmol/L (98-108); Creatinine, Serum 1.26 mg/dL (0.70-1.20); EST Glomerular Filtration Rate 44 (>60); Globulin 2.5 g/dL (2.2-4.2); Glucose 96 mg/dL (70-99); Potassium 4.3 mmol/L (3.3-5.1); Protein, Total 6.7 g/dL (5.9-8.4); Sodium Level 138 mmol/L (133-145); Total Bilirubin 0.37 mg/dL (0.00-1.30)
[2024-05-22 13:30] LABS: Vitamin D,25 Hydroxy 48.3 ng/mL (30-100)
== END 2024-05-22 23:59 | disposition home or self-care (01) ==
LOC: BIMLAB 08:50
PROVIDERS: PCP Internal Medicine; Referring Provider Internal Medicine; Visit Provider Internal Medicine
DX: I10 Essential (primary) hypertension (principal); M85.80 Other specified disorders of bone density and structure, unspecified site
CPT/HCPCS: 36415; 80053; 82306; 85025

== ENCOUNTER → 2024-09-21 | Outpatient (CLI) | payer MEDICARE, SELFPAY ==
[2024-09-21 12:47] LABS: AST(SGOT) 24 U/L (<=31); Alanine Aminotransfer ALT/SGPT 26 U/L (<=34); Albumin, Serum 4.3 g/dL (3.4-4.8); Alkaline Phosphatase 96 U/L (35-104); Anion Gap 10 (5-15); BUN 27 mg/dL (4-19); BUN/Creat Ratio 20.5 RATIO (10-20); Calcium,Total 10.0 mg/dL (7.6-11.0); Carbon Dioxide 25.7 mmol/L (21.0-32.0); Chloride 103 mmol/L (98-108); Globulin 2.3 g/dL (2.2-4.2); Glucose 92 mg/dL (70-99); Potassium 4.7 mmol/L (3.3-5.1)
[2024-09-21 14:33] LABS: Cholesterol 253 mg/dL (<=200); Low Density Lipoprotein Calc. 152 mg/dL; Triglycerides 214 mg/dL; Very Low Density Lipoprotein 43 mg/dL (5-40); cholesterol:hdl ratio screen 4.35
== END | disposition home or self-care (01) ==
LOC: MTLAB 10:24
PROVIDERS: PCP Internal Medicine; Referring Provider Internal Medicine; Visit Provider Internal Medicine
DX: I10 Essential (primary) hypertension (principal); E78.5 Hyperlipidemia, unspecified
CPT/HCPCS: 36415; 80053; 80061

== ENCOUNTER → 2025-01-09 | Outpatient (CLI) | payer MEDICARE, OTHER, SELFPAY ==
[2025-01-09 12:19] LABS: Hematocrit 40.2 % (37-47); Hemoglobin 13.4 g/dL (12.0-15.0); Immature Granulocytes Count 0.030 X10^3/uL (0.0-0.0); Mean Corp Hgb Conc 33.3 g/dL (32-36); Mean Corpuscular Volume 91.6 fL (81-99); Mean Platelet Vol. 10.3 fl (6.2-12.0); NRBC Flagged by Analyzer 0 % (0-5); Platelet Count 263 K/mm3 (150-450); RBC Distribution Width CV 12.4 % (11.6-14.6); RBC Distribution Width SD 41.3 fl (35.1-43.9); Red Blood Count 4.39 M/mm3 (4.2-5.4); White Blood Count 4.8 K/mm3 (4.4-11.0)
[2025-01-09 12:51] LABS: AST(SGOT) 22 U/L (<=31); Alanine Aminotransfer ALT/SGPT 21 U/L (<=34); Albumin, Serum 4.2 g/dL (3.4-4.8); Alkaline Phosphatase 86 U/L (35-104); Anion Gap 9 (5-15); BUN 26 mg/dL (4-19); BUN/Creat Ratio 19.5 RATIO (10-20); Calcium,Total 9.9 mg/dL (7.6-11.0); Carbon Dioxide 26.7 mmol/L (21.0-32.0); Chloride 105 mmol/L (98-108); Cholesterol 261 mg/dL (<=200); Globulin 2.5 g/dL (2.2-4.2); Glucose 93 mg/dL (70-99); Low Density Lipoprotein Calc. 171 mg/dL; Potassium 4.7 mmol/L (3.3-5.1); Triglycerides 163 mg/dL; Very Low Density Lipoprotein 33 mg/dL (5-40); cholesterol:hdl ratio screen 4.31
[2025-01-09 18:24] LABS: Creatinine, Urine (random) 50.70 mg/dL (28.00-217.00); Microalbumin,Random Urine < 12.0 mg/L (<20 mg/L)
== END | disposition home or self-care (01) ==
PROVIDERS: PCP Internal Medicine; Referring Provider Internal Medicine; Visit Provider Internal Medicine
DX: I12.9 Hypertensive chronic kidney disease with stage 1 through stage 4 chronic kidney disease, or unspecified chronic kidney disease (principal); N18.30 Chronic kidney disease, stage 3 unspecified; E78.2 Mixed hyperlipidemia
CPT/HCPCS: 36415; 80053; 80061; 82043; 82570; 85025